=== PATIENT | male | born 1935 | race Caucasian/White ===

== ENCOUNTER 2016-08-05 08:49 | Inpatient (IN) | payer MEDICARE ==
[~2016-08-05] VITALS: Ht 170.2 cm; Wt 66.3 kg
[2016-08-05] VITALS (9 sets, daily range): BP systolic 100–118; BP diastolic 53–60; PULSE 71–82; RESP 16–20; TEMP 97.5–98.7; O2SAT 96–100
[~2016-08-05 08:49] MED LIST: 1-ME1LIQ OR; ASPI81TA82 PO; CO Q100C9 OR; FISH100020 OR; FOLI1TAB PO; HYDR200T42 PO; MEDR4TAB PO; METH2.5 PO; PRIL20CA PO; SAW160TA OR; TAB-TAB PO; VITA20002 OR; VITA25TA5 PO; [UNRECOGNIZED DRUG - OTHER] PO
[2016-08-05] MEDS ORDERED: COLA100C3 PO (09:40)
[2016-08-05] MEDS ORDERED: NITR0.4S SL (09:40)
[2016-08-05] MEDS ORDERED: AMLO10TA2 PO (09:40)
[2016-08-05] MEDS ORDERED: CLOP75TA PO (09:40)
[2016-08-05] MEDS ORDERED: LISI-519 PO (09:40)
[2016-08-05] MEDS ORDERED: ALPR0.5T3 PO (09:40)
[2016-08-05] MEDS ORDERED: ISOS30TA3 PO (09:40)
[2016-08-05] MEDS ORDERED: LACTCAP8 PO (09:40)
[2016-08-05] MEDS: NS 1000P @30 MLS/HR (KVO) IV SCH (09:45)
[2016-08-05] MEDS ORDERED: MIDAZOLAM HCL 2 MG/2 ML VIAL ONE ×2 (10:14→11:23)
[2016-08-05] MEDS ORDERED: HEPARIN-NS/PF INJ 500 ML ONE (10:14)
[2016-08-05] MEDS ORDERED: HEPARIN SODIUM - IV 10,000 UNITS/10 ML VIAL ONE (10:15)
[2016-08-05] MEDS ORDERED: NITROGLYCERIN INJ 5 ML ONE (10:15)
[2016-08-05] MEDS ORDERED: IOHEXOL 350 MG/ML 100 ML BTL (for Cath Lab) OTHER ONE (11:40)
[2016-08-05] MEDS ORDERED: ONDANSETRON HCL 4 MG/2 ML VIAL IV PRN (12:00)
[2016-08-05] MEDS ORDERED: SODIUM CHLOR 0.9% 250 ML INJ 250 ML IV PRN (12:00)
[2016-08-05] MEDS ORDERED: ATROPINE SULFATE 1 MG/ML VIAL IV PRN (12:00)
[2016-08-05] MEDS ORDERED: oxyCODONE/ACETAMINOPHEN 5 MG/325 MG TAB PO PRN ×2 (12:00)
[2016-08-05] MEDS ORDERED: LIDOCAINE HCL 1% 50 ML VIAL INFIL PRN (12:00)
[2016-08-05] MEDS ORDERED: METOCLOPRAMIDE HCL 10 MG/2 ML VIAL IV PRN (12:00)
[2016-08-05] MEDS ORDERED: MISC INFORMATION XX ONE ×2 (12:00)
[2016-08-05] MEDS ORDERED: BACITRACIN OINT 0.9 GM PKT TOP ONE (12:00)
--- NOTE | 2016-08-05 12:34 | MA ---
cc: GAMA GRAF DATE 08/05/2016 INDICATION Unstable angina PROCEDURE PERFORMED 1. Fluoroscopy with interpretation 2. Coronary angiography 3. Right upper extremity angiography METHOD The risks, benefits and alternatives discussed with the patient. The patient understood and consented to the procedure. PROCEDURE The patient brought into the catheterization lab and placed on the catheterization table. The right wrist and right groin prepped and draped in a sterile fashion. The right groin was anesthetized with 2% lidocaine. The right wrist was anesthetized also. The right renal artery was cannulated. A 6-Belizean, 7 cm sheath was placed. RIGHT UPPER EXTREMITY ANGIOGRAPHY The right upper extremity selective radial angiography showed a radial loop. We were able to navigate the loop with a choice PT extra-support wire and a multipurpose catheter, but the 6-Belizean JL catheter had difficulty with tortuosity and caking therefore the right radial approach was aborted. The right common femoral was cannulated and a 6-Belizean 11 center sheath was placed without difficulty. CORONARY ANGIOGRAPHY 1. Left main coronary has minor luminal irregularities. 2. Left anterior descending coronary proximally has about 30% stenosis. 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 The mid left anterior descending coronary artery has rather diffuse disease particularly at the bifurcation of the moderate size second diagonal branch. Both the first and second diagonal branches both have 90% stenosis, but the first diagonal branch is smaller caliber sized. The mid left anterior descending coronary has an 80% stenosis. The remainder left anterior descending coronary artery has only minor luminal irregularities. 3. The left circumflex proximally has minor luminal irregularities It gives rise to a first obtuse marginal branch with minor luminal irregularities. The a second obtuse marginal branch has a smaller second sub-branch that has a 95% stenosis and is likely the potential culprit. The remainder of the second obtuse marginal branch has only minor luminal irregularities. There is also a sinal girish branch off the left circumflex. 4. Right coronary is a dominant vessel giving rise to a posterior descending branch. The stent present in the mid-right coronary is patent. There are some minor luminal irregularities throughout. The distal right coronary is smaller caliber size and just at the bifurcation of the PDA and posterolateral branch there is an 80% stenosis present. The posterior descending branch has only minor luminal irregularities. CONCLUSION Multivessel coronary disease involving the mid left anterior descending coronary artery and several branch vessels. PLAN I reviewed the films in detail with cardiothoracic surgeon, Dr. Marito Valenzuela. Although he does have smaller branch vessels, his diagonal branch would potentially be compromised with any intervention to the mid left anterior descending coronary artery. In addition, the distal right coronary is smaller caliber and may not accommodate a stent. After on lengthy discussion, we decided for consideration of coronary bypass surgery which would involve the second diagonal branch, the distal left anterior descending coronary, the posterior descending branch and possibly the smaller second obtuse marginal SUBbranch. If he is not able to get a graft to that second smaller obtuse marginal subbranch, then we may either medically manage or consider hybrid staged procedure with stenting. For now, we will hold his Plavix and have him seen by cardiothoracic surgery for formal consultation. MD PASTORA Ivey/JAY /11:51 AM /12:17 PM [facility]
[2016-08-05] MEDS ORDERED: ceFAZolin 2 GM PREMIX 50 ML IV SCH (12:45)
[2016-08-05] MEDS ORDERED: PAPAVERINE INJ 60 MG, NITROGLYCERIN INJ 100 MCG, DILTIAZEM INJ 100 MG in SODIUM CHLORID... IRRIGATION SCH (12:45)
[2016-08-05] MEDS ORDERED: SODIUM CHLORIDE 0.9% FLUSH 10 ML FLUSH IVF PRN (12:45)
[2016-08-05] MEDS ORDERED: CEFAZOLIN INJ 500 MG in SODIUM CHLORIDE 0.9% IRR BTL 500 ML IRRIGATION SCH (12:45)
[2016-08-05] MEDS ORDERED: CHLORHEXIDINE GLUCONATE 4% SOLN 120 ML BTL TOPICAL SCH (12:45)
[2016-08-05] MEDS ORDERED: METOPROLOL TARTRATE 25 MG TAB PO SCH (12:45)
[2016-08-05] MEDS ORDERED: INSULIN REGULAR (IV INFUSION) 100 UNITS in SODIUM CHLORIDE 0.9% INJ 100 ML IV SCH (12:45)
[2016-08-05] MEDS ORDERED: ACETAMINOPHEN 325 MG TAB PO PRN (13:00)
[2016-08-05] MEDS ORDERED: PILL SPLITTER OTHER PRN (13:00)
[2016-08-05] MEDS ORDERED: SODIUM CHLORIDE 0.9% FLUSH 10 ML FLUSH IV FLUSH PRN (13:00)
[2016-08-05] MEDS ORDERED: MAGNESIUM HYDROXIDE SUSP 30 ML CUP PO PRN (13:00)
[2016-08-05] MEDS ORDERED: ONDANSETRON HCL 4 MG/2 ML VIAL IVP PRN (13:00)
[2016-08-05] MEDS: DOCUSATE SODIUM 100 MG CAP PO SCH ×2 (13:00→21:00)
[2016-08-05] MEDS ORDERED: NALOXONE HCL 0.4 MG/ML AMP IV PRN (13:00)
[2016-08-05] MEDS ORDERED: NITROGLYCERIN 0.4 MG SL 25 TABS/BTL SL ONE (13:59)
[2016-08-05] MEDS ORDERED: NITROGLYCERIN 0.4 MG SL 25 TABS/BTL SL PRN (14:00)
[2016-08-05] MEDS: ISOSORBIDE MONONITRATE 30 MG TAB PO SCH (14:00)
--- NOTE | 2016-08-05 14:42 | RADRPT ---
EXAM DATE/TIME: 08/05/2016 13:34 [facility] COMPARISON: No previous studies available for comparison. INDICATIONS : Preop cardiac surgery. MEDICAL HISTORY : Hypothyroidism. Hypertension. Lupus. Peripheral arterial disease. GERD. SURGICAL HISTORY : Appendectomy. Cystoscopy, stone retrieval. Cataract, right. Cardiac catheterization. ENCOUNTER: Initial ACUITY: 1 day PAIN SCORE: 2/10 LOCATION: Bilateral leg. TECHNIQUE: Venous ultrasound of the left and right leg was performed from the inguinal ligament to the proximal calf. Real-time, color Doppler and spectral tracing, compression and augmentation techniques were us ed. FINDINGS: RIGHT LEG: There is normal compressibility of the deep venous system from the inguinal region to the proximal ca lf. No echogenic clot is seen in the lumen of the common femoral, femoral, popliteal, and posterior tibial veins. There is a normal response of the venous system to proximal and distal augmentation an d respiration. LEFT LEG: There is normal compressibility of the deep venous system from the inguinal region to the proximal ca lf. No echogenic clot is seen in the lumen of the common femoral, femoral, popliteal, and posterior tibial veins. There is a normal response of the venous system to proximal and distal augmentation an d respiration. CONCLUSION: No evidence of deep venous thrombosis within the lower extremities. Yousuf Hernandez MD on August 05, 2016 at 14:40 Board Certified Radiologist. This report was verified electronically.
--- NOTE | 2016-08-05 14:51 | RADRPT ---
EXAM DATE/TIME: 08/05/2016 13:17 [facility] COMPARISON: No previous studies available for comparison. INDICATIONS : PreOp cardiac surgery. MEDICAL HISTORY : Hypothyroidism. Hypertension. Lupus. Peripheral arterial disease. GERD. SURGICAL HISTORY : Appendectomy. Cystoscopy, stone retrieval. Cataract, right. Cardiac catheterization. ENCOUNTER: Initial ACUITY: 1 day PAIN SCORE: 0/10 LOCATION: Bilateral neck PEAK SYSTOLIC VELOCITIES (cm/sec): ICA/CCA RATIO: Right: 1.7 Left: 1.4 ICA: Right: 156 Left: 163 CCA: Right: 91 Left: 115 ECA: Right: 202 Left: 161 VERTEBRAL: Right: 40 antegrade Left: 54 antegrade Elevated flow velocities and ICA/CCA ratios have been found to correlate with increased degrees of vessel stenosis, calculated as percentage of diameter relative to a normal segment of distal ICA/CCA FINDINGS: RIGHT CAROTID: There is elevation of the peak systolic velocity of the proximal internal carotid artery in the range of 50-69% stenosis although the ICA/CCA ratio is not elevated in this range. CTA of the carotids wou ld be helpful for further evaluation. There is elevation of the peak systolic velocity the right ECA in the range of 50-69% stenosis also. Calcified atherosclerotic plaques are noted within the carotid bulb. LEFT CAROTID: There is elevation of the peak systolic velocity of the proximal internal carotid artery in the range of 50-69% stenosis although the ICA/CCA ratio is not elevated in this range. CTA of the carotids wou ld be helpful for further evaluation. There is elevation of the peak systolic velocity the left ECA i n the range of 50-69% stenosis also. Calcified atherosclerotic plaques are noted within the carotid b ulb. VERTEBRAL ARTERIES: Antegrade flow is seen in both vertebral arteries. MISCELLANEOUS: None. CONCLUSION: Elevation of the peak systolic velocities of the proximal internal carotid arteries a nd external carotid arteries bilaterally in the range of 50-69% stenosis without significant elevatio n of the ICA/CCA ratio in this range. CTA of the carotids would be helpful for further evaluation. Ca lcified atherosclerotic are noted within the carotid bulbs bilaterally. Yousuf Hernandez MD on August 05, 2016 at 14:45 Board Certified Radiologist. This report was verified electronically.
--- NOTE | 2016-08-05 14:52 | RADRPT ---
EXAM DATE/TIME: 08/05/2016 13:39 [facility] COMPARISON: No previous studies available for comparison. INDICATIONS : Preop cardiac surgery. MEDICAL HISTORY : Hypothyroidism. Hypertension. Lupus. Peripheral arterial disease. SURGICAL HISTORY : Appendectomy. Cystoscopy, stone retrieval. Cataract, right. Cardiac catheterization. ENCOUNTER: Initial ACUITY: 1 day PAIN SCORE: 2/10 LOCATION: Bilateral leg. GREATER SAPHENOUS VEIN THIGH: PROXIMAL: Right 4 mm Left 4 mm MID: Right 4 mm Left 4 mm DISTAL: Right 3 mm Left 3 mm CALF: PROXIMAL: Right 2 mm Left 1 mm MID: Right 2 mm Left 2 mm DISTAL: Right 2 mm Left 2 mm FINDINGS: The venous system of the lower extremities are patent by color Doppler imaging. Measurements of the leg veins (in mm) are listed above. CONCLUSION: Bilateral saphenous vein mapping as described above. Yousuf Hernandez MD on August 05, 2016 at 14:50 Board Certified Radiologist. This report was verified electronically.
[2016-08-05 17:03] LABS: BLOOD, URINE NEG (NEG); COMMENT (UR) CULT NOT INDICATED; CULTURE IF INDICATED CULT NOT INDICATED; GLUCOSE,URINE NEG (NEG); HYALINE CAST, URINE 5 /lpf (RARE); KETONE, URINE NEG (NEG); MUCUS URINE FEW /lpf (OCC); NITRITE,URINE NEG (NEG); PH, URINE 5.5 (5.0-8.5); URINE COLOR YELLOW (YELLW/STRAW)
--- NOTE | 2016-08-05 18:51 | PD.CAR.PN ---
CVT Progress Note Subjective/Hospital Course: sts discussed with pt RISK SCORES About the STS Risk Calculator Procedure: CAB Only Risk of Mortality: 1.743% Morbidity or Mortality: 11.967% Long Length of Stay: 4.81% Short Length of Stay: 44.701% Permanent Stroke: 1.068% Prolonged Ventilation: 7.93% DSW Infection: 0.278% Renal Failure: 2.185% Reoperation: 5.537% Objective: Vital Signs Date Time Temp Pulse Resp B/P Pulse Ox O2 Delivery O2 Flow Rate FiO2 08/05/16 18:00 76 08/05/16 17:00 72 08/05/16 16:00 73 08/05/16 16:00 98.3 71 16 114/60 98 08/05/16 15:00 72 08/05/16 09:35 97.5 82 18 118/60 100 Labs: Laboratory Tests Test 08/05/16 08/05/16 08/05/16 09:12 14:45 16:40 Blood Type A POSITIVE Antibody Screen NEGATIVE Blood Bank Comment Nasal Screen MRSA (PCR) NEGATIVE (NEGATIVE) Urine Color YELLOW (YELLW/STRAW) Urine Turbidity CLEAR (CLEAR) Urine pH 5.5 (5.0-8.5) Urine Specific [place] GREATER THAN 1.050 (1.002-1.035) Urine Protein TRACE mg/dL (NEG-TRACE) Urine Glucose (UA) NEG mg/dL (NEG) Urine Ketones NEG mg/dL (NEG) Urine Occult Blood NEG (NEG) Urine Nitrite NEG (NEG) Urine Bilirubin NEG (NEG) Urine Urobilinogen LESS THAN 2.0 MG/DL (LESS THAN 2.0) Urine Leukocyte Esterase NEG (NEG) Urine Hyaline Casts 5 /lpf (RARE) Urine Mucus FEW /lpf (OCC) Microscopic Urinalysis Comment CULT NOT INDICATED Nathalie Cruz Aug 05, 2016 18:51
[2016-08-05] MEDS: HYDROXYCHLOROQUINE SULFATE 200 MG TAB PO SCH (21:00)
[2016-08-05] MEDS ORDERED: SODIUM CHLORIDE 0.9% FLUSH 10 ML FLUSH IVF SCH (21:00)
[2016-08-05] MEDS: METOPROLOL TARTRATE 25 MG TAB PO SCH (21:00)
[2016-08-05] MEDS: SODIUM CHLORIDE 0.9% FLUSH 10 ML FLUSH IV FLUSH SCH (21:00)
[2016-08-06] VITALS (25 sets, daily range): BP systolic 107–138; BP diastolic 52–72; PULSE 63–99; RESP 18–20; TEMP 98–98.9; O2SAT 96–97
[2016-08-06] MEDS: ISOSORBIDE MONONITRATE 30 MG TAB PO SCH (05:28)
[2016-08-06] MEDS ORDERED: ISOSORBIDE MONONITRATE 30 MG TAB PO SCH (07:00)
[2016-08-06] MEDS ORDERED: SYSTSOL15 EACH EYE (08:40)
--- NOTE | 2016-08-06 08:58 | MB ---
cc: COLT GALAVIZ MD DATE OF CONSULTATION: 08/05/2016 DATE OF : 1935 80 year-old HISTORY: This is a very pleasant 80-year-old male complaining of some left-sided chest pain that radiated to his back and shoulder. He took some nitro at home which relieved the pain but it returned, he felt very light headed, and dizzy, they called. DICTATION DISCONTINUED DAVID Cruz DICTATED BY: DAVID Cruz /6:38 PM /8:53 AM
[2016-08-06] MEDS: METOPROLOL TARTRATE 25 MG TAB PO SCH ×2 (09:00→20:51)
[2016-08-06] MEDS: SODIUM CHLORIDE 0.9% FLUSH 10 ML FLUSH IV FLUSH SCH ×2 (09:00→20:51)
--- NOTE | 2016-08-06 09:19 | PD.CARD.PN ---
Subjective Subjective Remarks C/o abdominal soreness, worse LLQ, watery stool. Objective Medications Current Medications Medications (Trade) Dose Ordered Sig/Ashok Route Start Time Stop Time Status Last Admin (NS 1000 ml Inj) 1,000 ml @ 30 mls/hr Q24H IV 08/05/16 09:45 08/05/16 09:45 (Percocet 5-325 Mg) 1 tab Q4H PRN PO 08/05/16 12:00 (Percocet 5-325 Mg) 2 tab Q4H PRN PO 08/05/16 12:00 Atropine Sulfate 0.5 mg 0.5 mg UNSCH PRN IV 08/05/16 12:00 (NS 250 ml Inj) 250 ml @ 500 mls/hr ONCE PRN IV 08/05/16 12:00 08/06/16 11:59 (Reglan Inj) 10 mg Q4H PRN IV 08/05/16 12:00 (Xylocaine 1% Inj (50 ml)) 10 ml UNSCH PRN INFIL 08/05/16 12:00 08/06/16 11:59 (Norvasc) 10 mg DAILY PO 08/06/16 09:00 (Aspirin Chew) 81 mg DAILY PO 08/06/16 09:00 (Folate) 1 mg DAILY PO 08/06/16 09:00 (Plaquenil) 200 mg BID PO 08/05/16 21:00 (NS Flush) 2 ml UNSCH PRN IV FLUSH 08/05/16 13:00 (NS Flush) 2 ml BID IV FLUSH 08/05/16 21:00 08/05/16 21:00 (Tylenol) 650 mg Q4H PRN PO 08/05/16 13:00 (Zofran Inj) 4 mg Q6H PRN IVP 08/05/16 13:00 (Colace) 100 mg Q12HR PO 08/05/16 13:00 (Milk Of Magnesia Liq) 30 ml Q12H PRN PO 08/05/16 13:00 (Narcan Inj) 0.4 mg UNSCH PRN IV 08/05/16 13:00 (Pill Splitter) 1 ea UNSCH PRN OTHER 08/05/16 13:00 (Lopressor) 12.5 mg Q12HR PO 08/05/16 21:00 (Xanax) 0.25 mg HS PRN PO 08/05/16 14:00 (Imdur) 30 mg DAILY@07 PO 08/05/16 14:00 08/06/16 05:28 (Nitrostat Sl) 0.4 mg Q5M PRN SL 08/05/16 14:00 Vital Signs / I&O Vital Signs Date Time Temp Pulse Resp B/P Pulse Ox O2 Delivery O2 Flow Rate FiO2 08/06/16 08:00 98.9 70 18 119/59 96 08/06/16 07:00 63 08/06/16 06:00 67 08/06/16 05:00 65 08/06/16 04:00 Room Air 08/06/16 04:00 73 08/06/16 04:00 98.1 73 18 126/72 97 08/06/16 03:00 74 08/06/16 02:00 76 08/06/16 01:00 74 08/06/16 00:00 Room Air 08/06/16 00:00 80 08/06/16 00:00 98.2 80 18 117/62 96 08/05/16 23:00 75 08/05/16 22:37 96 21 08/05/16 21:00 76 08/05/16 20:00 Room Air 08/05/16 20:00 74 08/05/16 20:00 98.7 74 20 100/53 97 08/05/16 18:00 76 08/05/16 17:00 72 08/05/16 16:00 73 08/05/16 16:00 98.3 71 16 114/60 98 08/05/16 15:00 72 08/05/16 09:35 97.5 82 18 118/60 100 I/O 08/05/16 08/05/16 08/05/16 08/06/16 08/06/16 08/06/16 07:00 15:00 23:00 07:00 15:00 23:00 Intake Total 490 ml Output Total 800 ml Balance -310 ml Intake Oral 480 ml IV Total 10 ml Output Urine Total 800 ml # Bowel Movements 1 Physical Exam GENERAL: Well developed, well nourished. No acute distress. HEENT: Jugular venous pressure is normal. CHEST: Lungs clear to auscultation bilaterally. Unlabored respiratory effort. CARDIAC: Regular rate and rhythm without S3, S4, or murmur. ABDOMEN: Soft, BS+, slight tenderness LLQ (notes watery stool). Dr. Giordano happens to be here on floor who will check as well. Will consider formal consult , CT if gets worse. EXTREMITIES: No clubbing, cyanosis, or edema. Right wrist and right groin OK Laboratory Laboratory Tests Test 08/05/16 08/05/16 14:45 16:40 Nasal Screen MRSA (PCR) NEGATIVE Urine Color YELLOW Urine Turbidity CLEAR Urine pH 5.5 Urine Specific [place] GREATER THAN 1.050 Urine Protein TRACE mg/dL Urine Glucose (UA) NEG mg/dL Urine Ketones NEG mg/dL Urine Occult Blood NEG Urine Nitrite NEG Urine Bilirubin NEG Urine Urobilinogen LESS THAN 2.0 MG/DL Urine Leukocyte Esterase NEG Urine Hyaline Casts 5 /lpf Urine Mucus FEW /lpf Microscopic Urinalysis Comment CULT NOT INDICATED Assessment and Plan Problem List: (1) CAD (coronary artery disease) Assessment and Plan: Severe. Awaiting CABG (2) Abdominal pain Assessment and Plan: Nonspecific. ? gas. Consider formal consult and CT if it gets worse Mark Nixon MD Aug 06, 2016 09:19
[2016-08-06] MEDS: HYDROXYCHLOROQUINE SULFATE 200 MG TAB PO SCH ×2 (09:23→20:51)
[2016-08-06] MEDS: ASPIRIN 81 MG CHEW TAB PO SCH (09:24)
[2016-08-06] MEDS: DOCUSATE SODIUM 100 MG CAP PO SCH ×2 (09:24→20:52)
[2016-08-06] MEDS: FOLIC ACID 1 MG TAB PO SCH (09:24)
[2016-08-06] MEDS ORDERED: SIMETHICONE 80 MG CHEWABLE TAB CHEW ONE (09:30)
[2016-08-06] MEDS: NS 1000P @30 MLS/HR (KVO) IV SCH (09:45)
--- NOTE | 2016-08-06 10:35 | RADRPT ---
EXAM DATE/TIME: 08/06/2016 10:22 [facility] COMPARISON: No previous studies available for comparison. INDICATIONS : Evaluate for pneumonia, pneumothorax, or communicable disease. Pre-op heart surgery. MEDICAL HISTORY : None. SURGICAL HISTORY : None. ENCOUNTER: Initial ACUITY: 1 day PAIN SCORE: 0/10 LOCATION: Bilateral chest FINDINGS: PA and lateral views of the chest demonstrate the lungs to be symmetrically aerated without evidence of mass, infiltrate or effusion. The cardiomediastinal contours are unremarkable. Osseous structure s are intact. CONCLUSION: Normal examination. Nathalie Valencia MD on August 06, 2016 at 10:33 Board Certified Radiologist. This report was verified electronically.
[2016-08-06 13:58] LABS: AUTOMATED NEUTROPHIL # 5.7 TH/MM3 (1.8-7.7); BASOPHIL % 0.4 % (0.0-2.0); EOSINOPHIL % 0.3 % (0.0-4.0); HEMATOCRIT 33.6 % (39.0-51.0); HEMO FLAGS DIFF FINAL; LYMPHOCYTE # 0.7 TH/MM3 (1.0-4.8); MEAN CELL VOLUME 91.7 FL (80.0-100.0); MEAN CORPUSCULAR HEMOGLOBIN 31.8 PG (27.0-34.0); MEAN CORPUSCULAR HGB CONC 34.6 % (32.0-36.0); MONO % 12.2 % (0.0-8.0); NEUT % 78.1 % (16.0-70.0); PLATELET COUNT 203 TH/MM3 (150-450); RED BLOOD COUNT 3.66 MIL/MM3 (4.50-5.90); RED CELL DISTRIBUTION WIDTH 13.4 % (11.6-17.2); WHITE BLOOD COUNT 7.3 TH/MM3 (4.0-11.0)
[2016-08-06 14:21] LABS: ALKALINE PHOSPHATASE 36 U/L (45-117); ALT (GPT) 19 U/L (12-78); AMYLASE 41 U/L (25-115); ANION GAP 8 MEQ/L (5-15); AST (GOT) 18 U/L (15-37); BICARBONATE 26.4 MEQ/L (21.0-32.0); BLOOD UREA NITROGEN 20 MG/DL (7-18); CHLORIDE 102 MEQ/L (98-107); GLOMERULAR FILTRATION RATE 69 ML/MIN (>89); POTASSIUM 3.8 MEQ/L (3.5-5.1); SODIUM (NA) 136 MEQ/L (136-145); TOTAL BILIRUBIN ADULT 0.4 MG/DL (0.2-1.0)
[2016-08-07] VITALS (23 sets, daily range): BP systolic 92–129; BP diastolic 54–73; PULSE 59–86; RESP 18–20; TEMP 98.1–99.4; O2SAT 96–97
[2016-08-07] MEDS: ISOSORBIDE MONONITRATE 30 MG TAB PO SCH (06:07)
[2016-08-07] MEDS: SODIUM CHLORIDE 0.9% FLUSH 10 ML FLUSH IV FLUSH SCH ×2 (09:00→19:51)
[2016-08-07] MEDS: HYDROXYCHLOROQUINE SULFATE 200 MG TAB PO SCH ×2 (09:00→19:51)
[2016-08-07] MEDS: ASPIRIN 81 MG CHEW TAB PO SCH (09:00)
[2016-08-07] MEDS: FOLIC ACID 1 MG TAB PO SCH (09:00)
[2016-08-07] MEDS: METOPROLOL TARTRATE 25 MG TAB PO SCH ×2 (09:00→19:51)
[2016-08-07] MEDS: DOCUSATE SODIUM 100 MG CAP PO SCH ×2 (09:00→19:51)
[2016-08-07] MEDS: ARTIFICIAL TEARS OPTH SOLN 15 ML BTL EACH EYE PRN ×2 (09:03→20:03)
[2016-08-07] MEDS: NS 1000P @30 MLS/HR (KVO) IV SCH (09:45)
--- NOTE | 2016-08-07 10:21 | PD.CARD.PN ---
Subjective Subjective Remarks some vague brief left sided chest discomfort. no typical angina. he passed some gas and abdominal pain resolved Objective Medications Current Medications Medications (Trade) Dose Ordered Sig/Ashok Route Start Time Stop Time Status Last Admin (NS 1000 ml Inj) 1,000 ml @ 30 mls/hr Q24H IV 08/05/16 09:45 08/05/16 09:45 (Percocet 5-325 Mg) 1 tab Q4H PRN PO 08/05/16 12:00 (Percocet 5-325 Mg) 2 tab Q4H PRN PO 08/05/16 12:00 (Atropine Inj) 0.5 mg UNSCH PRN IV 08/05/16 12:00 (Reglan Inj) 10 mg Q4H PRN IV 08/05/16 12:00 (Norvasc) 10 mg DAILY PO 08/06/16 09:00 08/07/16 09:00 (Aspirin Chew) 81 mg DAILY PO 08/06/16 09:00 08/07/16 09:00 (Folate) 1 mg DAILY PO 08/06/16 09:00 08/07/16 09:00 (Plaquenil) 200 mg BID PO 08/05/16 21:00 08/07/16 09:00 (NS Flush) 2 ml UNSCH PRN IV FLUSH 08/05/16 13:00 (NS Flush) 2 ml BID IV FLUSH 08/05/16 21:00 08/07/16 09:00 (Tylenol) 650 mg Q4H PRN PO 08/05/16 13:00 (Zofran Inj) 4 mg Q6H PRN IVP 08/05/16 13:00 (Colace) 100 mg Q12HR PO 08/05/16 13:00 08/06/16 09:24 (Milk Of Magnesia Liq) 30 ml Q12H PRN PO 08/05/16 13:00 (Narcan Inj) 0.4 mg UNSCH PRN IV 08/05/16 13:00 (Pill Splitter) 1 ea UNSCH PRN OTHER 08/05/16 13:00 (Lopressor) 12.5 mg Q12HR PO 08/05/16 21:00 08/07/16 09:00 (Xanax) 0.25 mg HS PRN PO 3/24/17 14:00 (Imdur) 30 mg DAILY@07 PO 08/05/16 14:00 08/07/16 06:07 (Nitrostat Sl) 0.4 mg Q5M PRN SL 08/05/16 14:00 (Tears Naturale Opth Soln) 1 drop QID PRN EACH EYE 08/06/16 09:30 08/07/16 09:03 Vital Signs / I&O Vital Signs Date Time Temp Pulse Resp B/P Pulse Ox O2 Delivery O2 Flow Rate FiO2 08/07/16 09:00 68 08/07/16 08:00 75 08/07/16 08:00 96 Room Air 08/07/16 08:00 99.4 75 18 115/54 96 08/07/16 07:00 59 08/07/16 06:00 68 08/07/16 05:00 67 08/07/16 04:00 63 08/07/16 04:00 98.1 63 18 124/73 97 08/07/16 04:00 Room Air 08/07/16 03:00 65 08/07/16 02:00 66 08/07/16 01:00 69 08/07/16 00:00 63 08/06/16 23:55 Room Air 08/06/16 23:55 98.4 63 20 115/68 96 08/06/16 23:00 69 08/06/16 22:00 70 08/06/16 21:00 81 08/06/16 20:00 Room Air 08/06/16 20:00 98.2 76 18 138/66 97 08/06/16 20:00 76 08/06/16 18:00 99 08/06/16 17:00 75 08/06/16 16:00 83 08/06/16 15:00 98.0 72 20 124/64 96 08/06/16 15:00 85 08/06/16 14:00 70 08/06/16 13:00 68 08/06/16 12:00 72 08/06/16 11:00 71 08/06/16 11:00 98.3 72 20 107/52 96 I/O 08/06/16 08/06/16 08/06/16 08/07/16 08/07/16 08/07/16 07:00 15:00 23:00 07:00 15:00 23:00 Intake Total 490 ml 720 ml 422 ml Output Total 800 ml 800 ml Balance -310 ml 720 ml -378 ml Intake Oral 480 ml 720 ml 420 ml IV Total 10 ml 2 ml Output Urine Total 800 ml 800 ml # Voids 3 # Bowel Movements 1 0 0 Physical Exam GENERAL: Well developed, well nourished. No acute distress. HEENT: Jugular venous pressure is normal. CHEST: Lungs clear to auscultation bilaterally. Unlabored respiratory effort. CARDIAC: Regular rate and rhythm without S3, S4, or murmur. ABDOMEN: Soft, BS+, no tenderness. EXTREMITIES: No clubbing, cyanosis, or edema. Right wrist and right groin OK Laboratory Laboratory Tests Test 08/06/16 13:47 White Blood Count 7.3 TH/MM3 Red Blood Count 3.66 MIL/MM3 Hemoglobin 11.6 GM/DL Hematocrit 33.6 % Mean Corpuscular Volume 91.7 FL Mean Corpuscular Hemoglobin 31.8 PG Mean Corpuscular Hemoglobin 34.6 % Concent Red Cell Distribution Width 13.4 % Platelet Count 203 TH/MM3 Mean Platelet Volume 7.4 FL Neutrophils (%) (Auto) 78.1 % Lymphocytes (%) (Auto) 9.0 % Monocytes (%) (Auto) 12.2 % Eosinophils (%) (Auto) 0.3 % Basophils (%) (Auto) 0.4 % Neutrophils # (Auto) 5.7 TH/MM3 Lymphocytes # (Auto) 0.7 TH/MM3 Monocytes # (Auto) 0.9 TH/MM3 Eosinophils # (Auto) 0.0 TH/MM3 Basophils # (Auto) 0.0 TH/MM3 CBC Comment DIFF FINAL Differential Comment Sodium Level 136 MEQ/L Potassium Level 3.8 MEQ/L Chloride Level 102 MEQ/L Carbon Dioxide Level 26.4 MEQ/L Anion Gap 8 MEQ/L Blood Urea Nitrogen 20 MG/DL Creatinine 1.04 MG/DL Estimat Glomerular Filtration 69 ML/MIN Rate Random Glucose 89 MG/DL Calcium Level 8.1 MG/DL Total Bilirubin 0.4 MG/DL Aspartate Amino Transf 18 U/L (AST/SGOT) Alanine Aminotransferase 19 U/L (ALT/SGPT) Alkaline Phosphatase 36 U/L Total Protein 5.9 GM/DL Albumin 3.1 GM/DL Amylase Level 41 U/L Assessment and Plan Problem List: (1) CAD (coronary artery disease) Assessment and Plan: sahratly stable. awaiting CABG once clopidogrel wears off (2) Abdominal pain Assessment and Plan: resolved Assessment and Plan Dr. Chang back tomorrow Mark Nixon MD Aug 07, 2016 10:21
--- NOTE | 2016-08-07 12:02 | PD.CAR.PN ---
CVT Progress Note Subjective/Hospital Course: sts discussed with pt RISK SCORES About the STS Risk Calculator Procedure: CAB Only Risk of Mortality: 1.743% Morbidity or Mortality: 11.967% Long Length of Stay: 4.81% Short Length of Stay: 44.701% Permanent Stroke: 1.068% Prolonged Ventilation: 7.93% DSW Infection: 0.278% Renal Failure: 2.185% Reoperation: 5.537% 08/07/16 No complaints. Denies chest pain Objective: Vital Signs Date Time Temp Pulse Resp B/P Pulse Ox O2 Delivery O2 Flow Rate FiO2 08/07/16 11:00 65 08/07/16 10:00 61 08/07/16 09:00 68 08/07/16 08:00 75 08/07/16 08:00 96 Room Air 08/07/16 08:00 99.4 75 18 115/54 96 08/07/16 07:00 59 08/07/16 06:00 68 08/07/16 05:00 67 08/07/16 04:00 63 08/07/16 04:00 98.1 63 18 124/73 97 08/07/16 04:00 Room Air 08/07/16 03:00 65 08/07/16 02:00 66 08/07/16 01:00 69 08/07/16 00:00 63 08/06/16 23:55 Room Air 08/06/16 23:55 98.4 63 20 115/68 96 08/06/16 23:00 69 08/06/16 22:00 70 08/06/16 21:00 81 08/06/16 20:00 Room Air 08/06/16 20:00 98.2 76 18 138/66 97 08/06/16 20:00 76 08/06/16 18:00 99 08/06/16 17:00 75 08/06/16 16:00 83 08/06/16 15:00 98.0 72 20 124/64 96 08/06/16 15:00 85 08/06/16 14:00 70 08/06/16 13:00 68 Result Diagram: 08/06/16 1347 08/06/16 1347 Imaging: Last Impressions Chest X-Ray 08/06/16 0000 Signed Impressions: Service Date/Time: Saturday, August 06, 2016 10:22 - CONCLUSION: Normal examination. Nathalie Valencia MD Lower Extremity Ultrasound 08/05/16 0000 Signed Impressions: Service Date/Time: Friday, August 05, 2016 13:39 - CONCLUSION: Bilateral saphenous vein mapping as described above. Yousuf Hernandez MD Carotid Artery Ultrasound 08/05/16 0000 Signed Impressions: Service Date/Time: Friday, August 05, 2016 13:17 - CONCLUSION: Elevation of the peak systolic velocities of the proximal internal carotid arteries and external carotid arteries bilaterally in the range of 50-69%% stenosis without significant elevation of the ICA/CCA ratio in this range. CTA of the carotids would be helpful for further evaluation. Calcified atherosclerotic are noted within the carotid bulbs bilaterally. Yousuf Hernandez MD Cardiovascular: RRR Telemetry: NSR Pulmonary: CTA GI/: NABS, NT Plan: PREOP for CABG on Monday. (1) CAD (coronary artery disease) Plan: cuurently stable. awaiting CABG once clopidogrel wears off (2) Abdominal pain Plan: resolved Naomi Jordan MD Aug 07, 2016 12:02
[2016-08-08] VITALS (24 sets, daily range): BP systolic 94–128; BP diastolic 52–69; PULSE 53–76; RESP 18; TEMP 98.1–98.4; O2SAT 96–97
[2016-08-08 03:30] LABS: AUTOMATED NEUTROPHIL # 4.5 TH/MM3 (1.8-7.7); BASOPHIL % 0.4 % (0.0-2.0); EOSINOPHIL % 0.8 % (0.0-4.0); HEMO FLAGS DIFF FINAL; LYMPH % 15.1 % (9.0-44.0); LYMPHOCYTE # 0.9 TH/MM3 (1.0-4.8); MEAN CELL VOLUME 92.3 FL (80.0-100.0); MEAN CORPUSCULAR HEMOGLOBIN 32.2 PG (27.0-34.0); MEAN CORPUSCULAR HGB CONC 34.9 % (32.0-36.0); MONO % 10.9 % (0.0-8.0); NEUT % 72.8 % (16.0-70.0); PLATELET COUNT 223 TH/MM3 (150-450); RED BLOOD COUNT 4.01 MIL/MM3 (4.50-5.90); RED CELL DISTRIBUTION WIDTH 13.9 % (11.6-17.2); WHITE BLOOD COUNT 6.2 TH/MM3 (4.0-11.0)
[2016-08-08 03:45] LABS: INTERNATIONAL NORMALIZED RATIO 1.1 RATIO; PROTHROMBIN TIME - PATIENT 12.1 SEC (9.8-11.6)
[2016-08-08 03:51] LABS: P2Y12 REACTION UNITS (PRU) 200 PRU (194-418)
[2016-08-08 03:53] LABS: ALKALINE PHOSPHATASE 41 U/L (45-117); ALT (GPT) 28 U/L (12-78); ANION GAP 6 MEQ/L (5-15); AST (GOT) 26 U/L (15-37); BICARBONATE 26.5 MEQ/L (21.0-32.0); BLOOD UREA NITROGEN 18 MG/DL (7-18); CHLORIDE 103 MEQ/L (98-107); GLOMERULAR FILTRATION RATE 73 ML/MIN (>89); POTASSIUM 3.9 MEQ/L (3.5-5.1); SODIUM (NA) 135 MEQ/L (136-145); TOTAL BILIRUBIN ADULT 0.5 MG/DL (0.2-1.0)
[2016-08-08] MEDS: ISOSORBIDE MONONITRATE 30 MG TAB PO SCH (06:25)
--- NOTE | 2016-08-08 07:35 | PD.CARD.PN ---
Subjective Subjective Remarks feels well (Morris Stratton) Objective Vital Signs / I&O Vital Signs Date Time Temp Pulse Resp B/P Pulse Ox O2 Delivery O2 Flow Rate FiO2 08/08/16 07:00 53 08/08/16 06:00 63 08/08/16 05:00 59 08/08/16 04:00 98.4 56 18 122/69 97 08/08/16 04:00 56 08/08/16 04:00 Room Air 08/08/16 03:00 57 08/08/16 02:00 55 08/08/16 01:00 59 08/08/16 00:00 Room Air 08/08/16 00:00 58 08/08/16 00:00 98.2 58 18 102/58 96 08/07/16 23:00 63 08/07/16 22:00 82 08/07/16 21:00 80 08/07/16 20:00 98.2 86 20 129/71 97 08/07/16 20:00 Room Air 08/07/16 20:00 86 08/07/16 18:00 71 08/07/16 17:00 66 08/07/16 16:00 63 08/07/16 15:00 78 08/07/16 15:00 98.8 63 18 114/60 97 08/07/16 14:00 96 08/07/16 14:00 79 08/07/16 13:00 70 08/07/16 12:00 62 08/07/16 11:00 98.5 62 18 92/54 96 08/07/16 11:00 65 08/07/16 10:00 61 08/07/16 09:00 68 08/07/16 08:00 75 08/07/16 08:00 96 Room Air 08/07/16 08:00 99.4 75 18 115/54 96 I/O 08/07/16 08/07/16 08/07/16 08/08/16 08/08/16 08/08/16 07:00 15:00 23:00 07:00 15:00 23:00 Intake Total 422 ml 720 ml 402 ml Output Total 800 ml 1400 ml 950 ml Balance -378 ml -680 ml -548 ml Intake Oral 420 ml 720 ml 400 ml IV Total 2 ml 2 ml Output Urine Total 800 ml 1400 ml 950 ml # Bowel Movements 0 0 0 Physical Exam GENERAL: Well-nourished, well-developed patient in no apparent distress. NECK: No JVD. No carotid bruit. CARDIOVASCULAR: Regular rate and rhythm. S1/S2 no murmur, rub, or gallop. RESPIRATORY: No accessory muscle use. Clear to auscultation. Breath sounds equal bilaterally. GASTROINTESTINAL: Abdomen soft, non-tender, nondistended. MUSCULOSKELETAL: Extremities without clubbing, cyanosis, or edema. Laboratory Laboratory Tests Test 08/08/16 03:19 White Blood Count 6.2 TH/MM3 Red Blood Count 4.01 MIL/MM3 Hemoglobin 12.9 GM/DL Hematocrit 37.0 % Mean Corpuscular Volume 92.3 FL Mean Corpuscular Hemoglobin 32.2 PG Mean Corpuscular Hemoglobin 34.9 % Concent Red Cell Distribution Width 13.9 % Platelet Count 223 TH/MM3 Mean Platelet Volume 7.8 FL Neutrophils (%) (Auto) 72.8 % Lymphocytes (%) (Auto) 15.1 % Monocytes (%) (Auto) 10.9 % Eosinophils (%) (Auto) 0.8 % Basophils (%) (Auto) 0.4 % Neutrophils # (Auto) 4.5 TH/MM3 Lymphocytes # (Auto) 0.9 TH/MM3 Monocytes # (Auto) 0.7 TH/MM3 Eosinophils # (Auto) 0.0 TH/MM3 Basophils # (Auto) 0.0 TH/MM3 CBC Comment DIFF FINAL Differential Comment Prothrombin Time 12.1 SEC Prothromb Time International 1.1 RATIO Ratio Platelet Function P2Y12 React 200 PRU Units Sodium Level 135 MEQ/L Potassium Level 3.9 MEQ/L Chloride Level 103 MEQ/L Carbon Dioxide Level 26.5 MEQ/L Anion Gap 6 MEQ/L Blood Urea Nitrogen 18 MG/DL Creatinine 0.99 MG/DL Estimat Glomerular Filtration 73 ML/MIN Rate Random Glucose 84 MG/DL Calcium Level 8.4 MG/DL Total Bilirubin 0.5 MG/DL Aspartate Amino Transf 26 U/L (AST/SGOT) Alanine Aminotransferase 28 U/L (ALT/SGPT) Alkaline Phosphatase 41 U/L Total Protein 6.8 GM/DL Albumin 3.7 GM/DL Blood Type A POSITIVE Antibody Screen NEGATIVE Crossmatch Leukocyte-Reduced Red Blood Cells Blood Bank Comment (Morris Stratton) Assessment and Plan Problem List: (1) CAD (coronary artery disease) (2) Abdominal pain Assessment and Plan Plan is for CABG Monday. Continue present medical regimen (Morris Stratton) Assessment and Plan Doing well. Mild bradycardia. cont bb. no CP. recheck p2y12 in am. > 200 would be safe for surgery. currently at 200, so I anticipate he will be fine for tomorrow. (Blade Chang MD) Morris Stratton Aug 08, 2016 07:35 Blade Chang MD Aug 08, 2016 08:28
--- NOTE | 2016-08-08 07:58 | MH ---
cc: COLT GALAVIZ MD DATE OF ADMISSION: 08/05/2016 DATE OF : 1935 HISTORY OF PRESENT ILLNESS This is a 80-year-old male, followup for a recent hospitalization where he had some episodes of left-sided chest pain radiating to his back and shoulder, took some nitro, had some dizziness afterwards and they called 9-1-1. It was suggested that he have a left heart catheterization and the patient's family requested that Dr. Cahng proceed with the heart cath. The patient underwent heart cath today which showed proximal LAD 30%, mid distal LAD 80%, diagonal 80%, the circ was 30%, OM 95%, the RCA 80%. We were consulted to evaluate for coronary artery bypass grafting. PAST MEDICAL HISTORY Significant for - 1. Coronary artery disease. 2. Anxiety. 3. Arthritis. 4. Chronic kidney disease stage II. 5. Gastroesophageal reflux disease. 6. History of prior VT. PAST SURGICAL HISTORY 1. Cardiac cath. 2. Appendectomy. 3. Bilateral cataract surgery. 4. He had a partial colectomy. 5. Colonoscopy. FAMILY HISTORY Noncontributory. SOCIAL HISTORY The patient , nonsmoker, occasional alcohol. Works out at the gym five times a week. ALLERGIES PLEASE NOTE THAT HE IS INTOLERANT TO STATINS AND ALLERGIC TO SULFA. REVIEW OF SYSTEMS GENERAL: No night sweats, fever, heat and cold intolerance. SKIN: No psoriasis, itching or hives. HEENT: No blurred vision or hearing loss. RESPIRATORY: No cough or shortness of breath. CARDIOVASCULAR: As above in the HPI. GASTROINTESTINAL: No diarrhea or vomiting. GENITOURINARY: No burning or frequency. TIERCE FILLER: No history of TIA, CVA or seizure disorder. ENDOCRINOLOGY: No history of diabetes and/or hypothyroidism. PHYSICAL EXAMINATION VITAL SIGNS: Blood pressure 114/60, heart rate is 70, temperature 98.3. GENERAL: The patient is awake, alert, in no acute distress. HEENT: Head is normocephalic, atraumatic. Pupils equal, reactive. Oral mucosa pink, moist. NECK: Supple. No JVD. Heart sounds S1, S2. Regular rate and rhythm. No rubs, murmurs or gallops. LUNGS: Clear to auscultation. No wheezes, rales or rhonchi. ABDOMEN: Soft, nontender. No masses or organomegaly. EXTREMITIES: No cyanosis, clubbing or edema. LABORATORY FINDINGS Hemoglobin 14, hematocrit of 40, white cell count of 6.6, platelet count of 236. INR 1.2. Sodium 130, potassium 4.4, BUN of 14, creatinine 0.93, total cholesterol 167, HDL 37, LDL 113, triglycerides 86. He had an echocardiogram which showed an EF of 55, some mild inferior hypokinesis, trace mitral regurgitation, mild tricuspid regurgitation. Aortic valve was thickened consistent with some aortic sclerosis, valve area 2.5. IMPRESSION This is a very pleasant 80-year-old male, recent chest pain, status post heart catheterization with multivessel disease. PLAN The plan will be for coronary artery bypass grafting to the LAD, the diagonal, the PDA and possible terminal circ. The patient's EF is 55%. Procedures, alternatives and risks have been discussed with the patient. He will be kept in the hospital due to a history of some chest pain. We will continue home medications with nitrates and aspirin. He is intolerant to statins. STS data will be discussed with the patient and dictated in the electronic record. Dictated by: DAVID Cruz Colt DUKES /6:40 PM /7:58 AM
[2016-08-08] MEDS: ASPIRIN 81 MG CHEW TAB PO SCH (08:35)
[2016-08-08] MEDS: DOCUSATE SODIUM 100 MG CAP PO SCH ×2 (08:35→20:37)
[2016-08-08] MEDS: FOLIC ACID 1 MG TAB PO SCH (08:35)
[2016-08-08] MEDS: HYDROXYCHLOROQUINE SULFATE 200 MG TAB PO SCH ×2 (08:35→20:32)
[2016-08-08] MEDS: METOPROLOL TARTRATE 25 MG TAB PO SCH ×2 (08:36→20:31)
[2016-08-08] MEDS: SODIUM CHLORIDE 0.9% FLUSH 10 ML FLUSH IV FLUSH SCH ×2 (08:39→20:37)
[2016-08-08 16:27] LABS: HEMOGLOBIN A1b 0.8 %; HEMOGLOBIN Ao 85.7 %; HEMOGLOBIN F 0.9 %; HEMOGLOBIN LA1C 1.7 %; HEMOGLOBIN P3 3.6 %
--- NOTE | 2016-08-08 17:24 | PD.CAR.PN ---
CVT Progress Note Subjective/Hospital Course: 80/ male c/o chest pain underwent elective heart cath by Dr Chang / multivessel disease 1& 2nd diagonal branch 90%, 30% LAD, 2nd OM 95% posterolateral branch 80% EF 55% PMH: CAD, HLP, HTN, PAD/ intolerance to statins 08/07/16 No complaints. Denies chest pain 08/08/16 remains chest pain free, scheduled for surgery in am Objective: GENERAL: SKIN: Warm and dry. HEAD: Normocephalic. EYES: No scleral icterus. No injection or drainage. NECK: Supple, trachea midline. No JVD or lymphadenopathy. CARDIOVASCULAR: Regular rate and rhythm without murmurs, gallops, or rubs. RESPIRATORY: Breath sounds equal bilaterally. No accessory muscle use. GASTROINTESTINAL: Abdomen soft, non-tender, nondistended. MUSCULOSKELETAL: No cyanosis, or edema. BACK: Nontender without obvious deformity. No CVA tenderness. Vital Signs Date Time Temp Pulse Resp B/P Pulse Ox O2 Delivery O2 Flow Rate FiO2 08/08/16 17:00 72 08/08/16 16:00 71 08/08/16 15:00 97 Room Air 08/08/16 15:00 98.3 69 18 117/54 97 08/08/16 15:00 68 08/08/16 14:00 62 08/08/16 13:00 63 08/08/16 12:00 97 Room Air 08/08/16 12:00 98.1 65 18 94/52 97 08/08/16 12:00 65 08/08/16 11:00 68 08/08/16 10:00 62 08/08/16 09:33 97 21 08/08/16 09:00 60 08/08/16 08:00 98.2 59 18 108/52 97 08/08/16 08:00 58 08/08/16 08:00 97 Room Air 08/08/16 07:00 53 08/08/16 06:00 63 08/08/16 05:00 59 08/08/16 04:00 98.4 56 18 122/69 97 08/08/16 04:00 56 08/08/16 04:00 Room Air 08/08/16 03:00 57 08/08/16 02:00 55 08/08/16 01:00 59 08/08/16 00:00 Room Air 08/08/16 00:00 58 08/08/16 00:00 98.2 58 18 102/58 96 08/07/16 23:00 63 08/07/16 22:00 82 08/07/16 21:00 80 08/07/16 20:00 98.2 86 20 129/71 97 08/07/16 20:00 Room Air 08/07/16 20:00 86 08/07/16 18:00 71 Result Diagram: 08/08/1631808/08/16318 Telemetry: NSR (1) CAD (coronary artery disease) Plan: cuurently stable. awaiting CABG once clopidogrel wears off (2) Abdominal pain Plan: resolved (3) Hyperlipemia Plan: intolerant to all statin (4) Peripheral arterial disease Plan: resume plavix after surgery (5) Hypertension Plan: controlled Nathalie Cruz Aug 08, 2016 17:24
[2016-08-09] VITALS (22 sets, daily range): BP systolic 86–129; BP diastolic 44–85; PULSE 54–93; RESP 16–20; TEMP 97.3–99.1; O2SAT 94–99
[2016-08-09 04:02] LABS: P2Y12 REACTION UNITS (PRU) 228 PRU (194-418)
[2016-08-09] MEDS ORDERED: GLYCOPYRROLATE 0.2 MG/ML VIAL IV ONE (05:00)
[2016-08-09] MEDS ORDERED: ceFAZolin 2 GM PREMIX 50 ML IV ONE (05:00)
[2016-08-09] MEDS ORDERED: MAGNESIUM SULFATE 1000 MG/2 ML VIAL (PED) IV ONE (05:00)
[2016-08-09] MEDS ORDERED: AMINOCAPROIC ACID INJ 250 MG/ML 20 ML VIAL IV ONE (05:00)
[2016-08-09] MEDS ORDERED: NITROGLYCERIN-DEXTROSE INJ 250 ML IV ONE (05:00)
[2016-08-09] MEDS ORDERED: CALCIUM CHLORIDE 10% SOLN 1 GRAM/10 ML SYR IV ONE (05:00)
[2016-08-09] MEDS ORDERED: HEPARIN SODIUM - SQ 10,000 UNITS/ML VIAL SQ ONE (05:00)
[2016-08-09] MEDS ORDERED: VECURONIUM BROMIDE 10 MG VIAL IV ONE (05:00)
[2016-08-09] MEDS ORDERED: ESMOLOL HCL 100 MG/10 ML VIAL IV ONE (05:00)
[2016-08-09] MEDS ORDERED: PROTAMINE SULFATE 250 MG/25 ML VIAL IV ONE (05:00)
[2016-08-09] MEDS ORDERED: DEXMEDETOMIDINE INJ 50 ML IV ONE (05:00)
[2016-08-09] MEDS: HEPARIN SODIUM - SQ 10,000 UNITS/ML VIAL ONE ×2 (06:59→08:56)
[2016-08-09] MEDS: VANCOMYCIN HCL 1000 MG VIAL ONE ×2 (06:59→08:56)
[2016-08-09] MEDS: ISOSORBIDE MONONITRATE 30 MG TAB PO SCH (07:00)
[2016-08-09] MEDS: SODIUM CHLORIDE 0.9% FLUSH 10 ML FLUSH IV FLUSH SCH ×2 (07:47→20:52)
[2016-08-09] MEDS: ASPIRIN 81 MG CHEW TAB PO SCH (07:47)
[2016-08-09] MEDS: DOCUSATE SODIUM 100 MG CAP PO SCH ×2 (07:48→20:51)
[2016-08-09] MEDS: FOLIC ACID 1 MG TAB PO SCH (07:48)
[2016-08-09] MEDS: METOPROLOL TARTRATE 25 MG TAB PO SCH ×2 (07:49→20:51)
[2016-08-09] MEDS: HYDROXYCHLOROQUINE SULFATE 200 MG TAB PO SCH ×2 (07:49→20:51)
[2016-08-09] MEDS ORDERED: SODIUM CHLORID 0.9% 500 ML INJ 500 ML IV ONE (08:32)
[2016-08-09] MEDS ORDERED: LACTATED RINGER'S 1000 ML INJ 2,000 ML IV ONE (08:32)
[2016-08-09] MEDS ORDERED: SODIUM CHLOR 0.9% 250 ML INJ 500 ML IV ONE (08:32)
[2016-08-09] MEDS ORDERED: SODIUM CHLORIDE 0.9% INJ 100 ML IV ONE (08:32)
[2016-08-09] MEDS ORDERED: NORMOSOL R INJ 2,000 ML IV ONE (08:32)
--- NOTE | 2016-08-09 11:57 | PD.OP ---
cc: Marito Chang MD; Blade Chang MD Operative Report Date of Surgery: Aug 09, 2016 Preoperative Diagnosis: Postoperative Diagnosis: Procedure: 1. Urgent Off-pump Coronary Artery Bypass Grafting x 4 with left internal mammary artery (BACA) to left anterior descending (LAD), reverse saphenous vein graft to Diagonal 2, sequential reverse saphenous vein graft to the terminal Circumflex artery and to the RPDA 2. Right Leg Endoscopic Vein [place] 3. Intraoperative Vein Mapping. . Surgeon: Marito Chang Creative Project Manager(s): Ghislaine Gu Operation and Findings: PREPROCEDURE DIAGNOSES 1. Severe Multi Vessel Coronary Artery Disease 2. 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 COPD POSTPROCEDURE DIAGNOSES Same SURGICAL PROCEDURE 1. Urgent Off-pump Coronary Artery Bypass Grafting x 4 with left internal mammary artery (BACA) to left anterior descending (LAD), reverse saphenous vein graft to Diagonal 2, sequential reverse saphenous vein graft to the terminal Circumflex artery and to the RPDA 2. Right Leg Endoscopic Vein [place] 3. Intraoperative Vein Mapping. SURGEON Marito Chang MD SKEIN TIER KHANH Lobo ANESTHESIA General endotracheal LIBRARY CONSULTANT LEONARDO Macedo MD PREPARATION ChloraPrep. COUNTS Needle, sponge, and instrument counts were correct. DRAINS Two 32-Turkmen mediastinal tubes. COMPLICATIONS None. INDICATIONS FOR PROCEDURE The patient is a 80-year-old presenting with chest pain. Patient was noted to have multi-vessel coronary artery disease and is being brought to the operating room for surgical revascularization therapy. PROCEDURE Patient was brought to the operating room and placed supine on the OR table. Following the induction of adequate general endotracheal anesthesia and placement of appropriate monitoring devices, intraoperative vein mapping was performed which revealed suitable-caliber conduit in the right lower extremity. The patient was then prepped and draped in standard sterile fashion. Next, 2500 units of intravenous heparin was given. The right greater saphenous vein was harvested endoscopically. This appeared to be a small but usable-caliber conduit. Simultaneously, a median sternotomy was performed and the left internal mammary artery dissected free off the posterior sternal table. The patient was systemically heparinized and anticoagulation monitored by serial ACT measurements. The internal mammary artery had good pulsatile flow in it and was a small-caliber conduit. The pericardium was then divided in the midline , the cradle created and targets analyzed. At this point, all anastomoses were performed in a beating-heart fashion using the Maquet stabilizing system. The left internal mammary artery was anastomosed to the distal LAD in an end-to- side fashion using 7-0 Prolene. Segment of saphenous vein graft was then anastomosed to the D2 in an end-to-side fashion using 7-0 Prolene. The next segment was anastomosed sequentially to the terminal left circumflex artery in a [id number] fashion and to the RPDA in an end-to-side fashion using 7-0 Prolene. The proximal anastomoses were then constructed to the ascending aorta in a running manner using 6-0 Prolene. All anastomotic sites were inspected and appeared to be hemostatic and patent. Protamine solution was given. Strict hemostasis was assured. The closure was undertaken. 2 chest tubes were placed. The pericardium was reapproximated in the midline. The sternum was approximated using sternal wires. The muscular and fascial layer were then closed in 3 layers. The endoscopic vein harvest site was closed in 2 layers. The patient tolerated the procedure well and was transferred to CVICU in stable condition. Marito Chang MD Aug 09, 2016 11:57
[2016-08-09] MEDS ORDERED: NITROGLYCERIN-DEXTROSE INJ 250 ML IV SCH (12:00)
[2016-08-09] MEDS ORDERED: INSULIN REGULAR (IV INFUSION) 100 UNITS in SODIUM CHLORIDE 0.9% INJ 99 ML IV SCH (12:00)
[2016-08-09] MEDS ORDERED: ACETAMINOPHEN 650 MG SUPP RECTAL PRN (12:00)
[2016-08-09] MEDS ORDERED: hydrALAZINE HCL 20 MG/ML VIAL IV PRN (12:00)
[2016-08-09] MEDS ORDERED: DOPamine INJ PREMIX 500 ML IV SCH (12:00)
[2016-08-09] MEDS ORDERED: CALCIUM CHLORIDE INJ 1 GM in SODIUM CHLORIDE 0.9% INJ 100 ML IV PRN (12:00)
[2016-08-09] MEDS ORDERED: METOPROLOL TARTRATE 5 MG/5 ML VIAL IV PUSH PRN (12:00)
[2016-08-09] MEDS ORDERED: CALCIUM CHLORIDE 10% 1 GRAM/10 ML VIAL IV PRN (12:00)
[2016-08-09] MEDS ORDERED: MAGNESIUM SULFATE INJ 2 GM in SODIUM CHLORIDE 0.9% INJ 100 ML IV PRN ×4 (12:00)
[2016-08-09] MEDS ORDERED: CLEVIDIPINE INJ 50 ML IV SCH (12:00)
[2016-08-09] MEDS ORDERED: DOBUTamine PREMIX DRIP 250 ML IV SCH (12:00)
[2016-08-09] MEDS ORDERED: Post-op Orders (for Pharmacy) MISC OTHER ONE (12:00)
[2016-08-09] MEDS ORDERED: ONDANSETRON HCL 4 MG/2 ML VIAL IV PUSH PRN (12:00)
[2016-08-09] MEDS ORDERED: DEXMEDETOMIDINE INJ 50 ML IV SCH (12:00)
[2016-08-09] MEDS ORDERED: POTASSIUM CHLORIDE 20 MEQ CONTROLLED RELEASE TAB PO PRN ×2 (12:00)
[2016-08-09] MEDS ORDERED: PHENYLEPHRINE INJ 40 MG in DEXTROSE 5% IN WATE 500 ML INJ 496 ML IV SCH ×2 (12:00)
[2016-08-09] MEDS ORDERED: EPINEPHrine (1:1000) INJ 4 MG in DEXTROSE 5% IN WATER INJ 246 ML IV SCH ×2 (12:00)
[2016-08-09] MEDS ORDERED: MEPERIDINE HCL 25 MG/ML VIAL IV PRN (12:00)
[2016-08-09] MEDS ORDERED: ALBUMIN HUMAN 5% 12.5 GM/250 ML BOTTLE IV PRN (12:00)
[2016-08-09] MEDS ORDERED: DEXTROSE 50% IN WATER 50 ML VIAL(D50) IV PUSH PRN (12:00)
[2016-08-09] MEDS ORDERED: ACETAMINOPHEN 325 MG TAB PO PRN (12:00)
[2016-08-09] MEDS ORDERED: POTASSIUM CHLOR 20 MEQ PREMIX 100 ML IV PRN ×3 (12:00)
[2016-08-09] MEDS ORDERED: ceFAZolin INJ 1,000 MG VIAL IV ONE (12:12)
[2016-08-09] MEDS ORDERED: MIDAZOLAM HCL 5 MG/5 ML VIAL ONE ×2 (12:37→12:38)
[2016-08-09] MEDS ORDERED: fentaNYL CITRATE 1000 MCG/20 ML VIAL ONE (12:38)
[2016-08-09] MEDS ORDERED: LACTATED RINGER'S 1000 ML INJ 500 ML IV PRN (13:00)
[2016-08-09] MEDS ORDERED: PHENYLEPHRINE HCL 10 MG/ML VIAL ONE (13:04)
[2016-08-09] MEDS ORDERED: RESP: ALBUTEROL 2.5 MG/IPRATROPIUM 0.5 MG NEB (PRN) NEB (13:15)
[2016-08-09] MEDS ORDERED: RESP: RACEPINEPHRINE 2.25% 0.5 ML NEB NEB PRN (13:15)
--- NOTE | 2016-08-09 13:42 | RADRPT ---
EXAM DATE/TIME: 08/09/2016 12:27 [facility] COMPARISON: CHEST PA & LAT, August 06, 2016, 10:22. INDICATIONS : Post op CABG. MEDICAL HISTORY : Hypothyroidism. Hypertension. Lupus. Peripheral arterial disease. SURGICAL HISTORY : Appendectomy. Cystoscopy, stone retrieval. Cataract, right. Cardiac catheterization. ENCOUNTER: Subsequent ACUITY: 1 day PAIN SCORE: Non-responsive. LOCATION: Bilateral chest FINDINGS: Single AP view of the chest. Endotracheal tube tip is not well demonstrated on this study due to over lap with nasogastric tube. Nasogastric tube tip is at the gastroesophageal junction. Side-port is in the distal esophagus. 2 left-sided chest tubes are seen. Right IJ central venous catheter is in place with the tip in the region of the distal SVC. Left lower lobe atelectasis. No evidence of pneumothor ax. Right lung clear. Possible small left pleural effusion. CONCLUSION: 1. Endotracheal tube tip not well-demonstrated due to overlap with nasogastric tube. 2. Left lower lobe atelectasis and possible small left pleural effusion. Balaji Hess MD on August 09, 2016 at 13:37 Board Certified Radiologist. This report was verified electronically.
[2016-08-09] MEDS: RESP: ALBUTEROL 2.5 MG/IPRATROPIUM 0.5 MG NEB (SCH) NEB ×2 (15:13→21:13)
[2016-08-09] MEDS: ACETAMINOPHEN 1000 MG/100 ML VIAL IV SCH ×2 (16:14→20:50)
[2016-08-09] MEDS: ceFAZolin 2 GM PREMIX 50 ML IV SCH (16:20)
[2016-08-09] MEDS: KETOROLAC TROMETHAMINE 30 MG/ML (IVP) VIAL IV PUSH PRN (16:21)
[2016-08-09] MEDS: ACETAMINOPHEN/HYDROcodone 325 MG/5 MG TAB PO PRN (16:22)
[2016-08-09] MEDS: AMIODARONE 200 MG TAB PO SCH (20:50)
[2016-08-09 21:04] LABS: MEAN CORPUSCULAR HGB CONC 36.2 % (32.0-36.0)
[2016-08-09] MEDS: MORPHINE SULFATE 4 MG/ML INJ IV PRN ×2 (21:57→23:51)
[2016-08-10] VITALS (13 sets, daily range): BP systolic 80–119; BP diastolic 45–66; PULSE 62–110; RESP 16–18; TEMP 97.7–98.5; O2SAT 94–98
[2016-08-10] MEDS: ceFAZolin 2 GM PREMIX 50 ML IV SCH ×3 (01:13→16:41)
[2016-08-10] MEDS: ACETAMINOPHEN 1000 MG/100 ML VIAL IV SCH ×2 (01:13→10:37)
[2016-08-10] MEDS: MORPHINE SULFATE 4 MG/ML INJ IV PRN (03:50)
[2016-08-10] MEDS: RESP: ALBUTEROL 2.5 MG/IPRATROPIUM 0.5 MG NEB (SCH) NEB ×3 (04:18→19:03)
[2016-08-10 04:57] LABS: HEMATOCRIT 26.4 % (39.0-51.0); MEAN CELL VOLUME 92.1 FL (80.0-100.0); MEAN CORPUSCULAR HEMOGLOBIN 33.3 PG (27.0-34.0); PLATELET COUNT 180 TH/MM3 (150-450); RED BLOOD COUNT 2.87 MIL/MM3 (4.50-5.90); RED CELL DISTRIBUTION WIDTH 13.5 % (11.6-17.2); WHITE BLOOD COUNT 10.1 TH/MM3 (4.0-11.0)
[2016-08-10 05:10] LABS: BICARBONATE 23.3 MEQ/L (21.0-32.0); MAGNESIUM 2.2 MG/DL (1.5-2.5); POTASSIUM 4.6 MEQ/L (3.5-5.1); REVIEW FLAG FINAL
[2016-08-10] MEDS: PANTOPRAZOLE SOD 40 MG DELAYED RELEASE TAB PO SCH (05:28)
--- NOTE | 2016-08-10 06:14 | RADRPT ---
EXAM DATE/TIME: 08/10/2016 05:11 [facility] COMPARISON: CHEST SINGLE AP, August 09, 2016, 12:27. INDICATIONS : Shortness of breath. MEDICAL HISTORY : None. SURGICAL HISTORY : None. ENCOUNTER: Subsequent ACUITY: 3 days PAIN SCORE: Non-responsive. LOCATION: Bilateral chest FINDINGS: Central and left chest tube present. Tiny apical pneumothorax on the left. Right central line in supe rior vena cava. Basilar airspace disease, left greater than right. Previous median sternotomy. CONCLUSION: 1. Central and left sided chest tube present with tiny left apical pneumothorax. Previous endotrachea l tube and nasogastric tube removed. Stable basilar airspace disease. Kamaljit Shea MD on August 10, 2016 at 6:12 Board Certified Radiologist. This report was verified electronically.
--- NOTE | 2016-08-10 08:04 | PD.CARD.PN ---
Subjective Subjective Remarks s/p CABG Objective Vital Signs / I&O Vital Signs Date Time Temp Pulse Resp B/P Pulse Ox O2 Delivery O2 Flow Rate FiO2 08/10/16 04:00 18 08/10/16 03:00 62 08/10/16 03:00 98.1 62 18 106/50 96 08/10/16 03:00 96 Nasal Cannula 3.00 08/10/16 01:45 18 08/09/16 23:00 66 08/09/16 23:00 97 Nasal Cannula 3.00 08/09/16 23:00 66 08/09/16 23:00 98.6 66 18 102/56 97 08/09/16 20:57 99 Nasal Cannula 3.00 08/09/16 19:00 61 08/09/16 19:00 99.1 61 18 116/50 94 08/09/16 19:00 94 Nasal Cannula 3.00 08/09/16 15:33 97.9 08/09/16 15:15 97.5 60 18 86/44 96 92/49 08/09/16 15:13 99 Nasal Cannula 4.00 08/09/16 15:00 97 Nasal Cannula 3.00 08/09/16 15:00 60 08/09/16 15:00 60 08/09/16 12:59 97 Nasal Cannula 3.00 08/09/16 12:59 58 08/09/16 12:40 98 Nasal Cannula 3.00 08/09/16 12:40 97 Nasal Cannula 3 08/09/16 12:40 50 08/09/16 12:40 63 08/09/16 12:33 97.3 08/09/16 12:20 99 60 08/09/16 12:15 58 08/09/16 12:15 99.0 93 20 129/63 97 92/59 08/09/16 12:15 50 08/09/16 12:15 98 Mechanical Ventilator 50 I/O 08/09/16 08/09/16 08/09/16 08/10/16 08/10/16 08/10/16 07:00 15:00 23:00 07:00 15:00 23:00 Intake Total 480 ml 2904 ml 563 ml Output Total 800 ml 730 ml 605 ml Balance -320 ml 2174 ml -42 ml Intake Oral 480 ml 400 ml IV Total 2504 ml 563 ml Output Urine Total 800 ml 450 ml 475 ml Stool Total 0 ml 0 ml Chest Tube Drainage Total 280 ml 130 ml # Bowel Movements 1 Physical Exam GENERAL: Well-nourished, well-developed patient in no apparent distress. NECK: No JVD. No carotid bruit. CARDIOVASCULAR: Regular rate and rhythm. S1/S2 no murmur, rub, or gallop. RESPIRATORY: No accessory muscle use. Clear to auscultation. Breath sounds equal bilaterally. GASTROINTESTINAL: Abdomen soft, non-tender, nondistended. MUSCULOSKELETAL: Extremities without clubbing, cyanosis, or edema. Laboratory Laboratory Tests Test 08/10/16 04:25 White Blood Count 10.1 TH/MM3 Red Blood Count 2.87 MIL/MM3 Hemoglobin 9.6 GM/DL Hematocrit 26.4 % Mean Corpuscular Volume 92.1 FL Mean Corpuscular Hemoglobin 33.3 PG Mean Corpuscular Hemoglobin 36.2 % Concent Red Cell Distribution Width 13.5 % Platelet Count 180 TH/MM3 Mean Platelet Volume 8.8 FL Sodium Level 135 MEQ/L Potassium Level 4.6 MEQ/L Chloride Level 105 MEQ/L Carbon Dioxide Level 23.3 MEQ/L Anion Gap 7 MEQ/L Blood Urea Nitrogen 15 MG/DL Creatinine 0.82 MG/DL Estimat Glomerular Filtration 91 ML/MIN Rate Random Glucose 124 MG/DL Calcium Level 8.1 MG/DL Magnesium Level 2.2 MG/DL Assessment and Plan Problem List: (1) CAD (coronary artery disease) (2) Abdominal pain (3) Hyperlipemia (4) Peripheral arterial disease (5) Hypertension Assessment and Plan s/p CABG on Monday. Recovering well. Continue present medical regimen. We will sign off and he can f/u with us OPD Morris Stratton Aug 10, 2016 08:04
[2016-08-10] MEDS ORDERED: SOD PHOSPHATE/SOD BIPHOSPHATE (ADULT) ENEMA 133ML RECTAL PRN (08:45)
[2016-08-10] MEDS ORDERED: DEXTROSE 50% IN WATER 50 ML VIAL(D50) IV PRN (08:45)
[2016-08-10] MEDS ORDERED: GLUCAGON 1 MG/ML VIAL OTHER PRN (08:45)
[2016-08-10] MEDS ORDERED: BISACODYL 10 MG SUPP RECTAL PRN (08:45)
[2016-08-10] MEDS: SODIUM CHLORIDE 0.9% FLUSH 10 ML FLUSH IV FLUSH SCH ×2 (09:00→21:00)
--- NOTE | 2016-08-10 09:28 | PD.CAR.PN ---
CVT Progress Note CVT: POD #: 1 Subjective/Hospital Course: 80/ male c/o chest pain underwent elective heart cath by Dr Chang / multivessel disease 1& 2nd diagonal branch 90%, 30% LAD, 2nd OM 95% posterolateral branch 80% EF 55% PMH: CAD, HLP, HTN, PAD/ intolerance to statins 08/07/16 No complaints. Denies chest pain 08/08/16 remains chest pain free, scheduled for surgery in am 08/09 . Urgent Off-pump Coronary Artery Bypass Grafting x 4 with left internal mammary artery (BACA) to left anterior descending (LAD), reverse saphenous vein graft to Diagonal 2, sequential reverse saphenous vein graft to the terminal Circumflex artery and to the RPDA 2. Right Leg Endoscopic Vein [place] 2800 crystalloid, 250cc cell saver, EBL 500cc extubated after surgery 08/10 slowly weaning off Wayne gtt additional IV fluid and albumin given this am eval for transfer later today, when off Wayne and BP stable Objective: GENERAL: SKIN: Warm and dry./ prevena to chest and mehrdad wrap to right leg HEAD: Normocephalic. EYES: No scleral icterus. No injection or drainage. NECK: Supple, trachea midline. No JVD or lymphadenopathy. CARDIOVASCULAR: Regular rate and rhythm without murmurs, gallops, or rubs. RESPIRATORY: diminished in bases / chest tube to wall suction/ no air leak drained 260cc/ 12 hrs CXR noted/ small tiny left PTX Breath sounds equal bilaterally. No accessory muscle use. GASTROINTESTINAL: Abdomen soft, non-tender, nondistended. MUSCULOSKELETAL: No cyanosis, or edema. BACK: Nontender without obvious deformity. No CVA tenderness. Vital Signs Date Time Temp Pulse Resp B/P Pulse Ox O2 Delivery O2 Flow Rate FiO2 08/10/16 04:00 18 08/10/16 03:00 62 08/10/16 03:00 98.1 62 18 106/50 96 08/10/16 03:00 96 Nasal Cannula 3.00 08/10/16 01:45 18 08/09/16 23:00 66 08/09/16 23:00 97 Nasal Cannula 3.00 08/09/16 23:00 66 08/09/16 23:00 98.6 66 18 102/56 97 08/09/16 20:57 99 Nasal Cannula 3.00 08/09/16 19:00 61 08/09/16 19:00 99.1 61 18 116/50 94 08/09/16 19:00 94 Nasal Cannula 3.00 08/09/16 15:33 97.9 08/09/16 15:15 97.5 60 18 86/44 96 92/49 08/09/16 15:13 99 Nasal Cannula 4.00 08/09/16 15:00 97 Nasal Cannula 3.00 08/09/16 15:00 60 08/09/16 15:00 60 08/09/16 12:59 97 Nasal Cannula 3.00 08/09/16 12:59 58 08/09/16 12:40 98 Nasal Cannula 3.00 08/09/16 12:40 97 Nasal Cannula 3 08/09/16 12:40 50 08/09/16 12:40 63 08/09/16 12:33 97.3 08/09/16 12:20 99 60 08/09/16 12:15 58 08/09/16 12:15 99.0 93 20 129/63 97 92/59 08/09/16 12:15 50 08/09/16 12:15 98 Mechanical Ventilator 50 Labs: Laboratory Tests Test 08/10/16 04:25 White Blood Count 10.1 TH/MM3 (4.0-11.0) Red Blood Count 2.87 MIL/MM3 (4.50-5.90) Hemoglobin 9.6 GM/DL (13.0-17.0) Hematocrit 26.4 % (39.0-51.0) Mean Corpuscular Volume 92.1 FL (80.0-100.0) Mean Corpuscular Hemoglobin 33.3 PG (27.0-34.0) Mean Corpuscular Hemoglobin 36.2 % Concent (32.0-36.0) Red Cell Distribution Width 13.5 % (11.6-17.2) Platelet Count 180 TH/MM3 (150-450) Mean Platelet Volume 8.8 FL (7.0-11.0) Sodium Level 135 MEQ/L (136-145) Potassium Level 4.6 MEQ/L (3.5-5.1) Chloride Level 105 MEQ/L (98-107) Carbon Dioxide Level 23.3 MEQ/L (21.0-32.0) Anion Gap 7 MEQ/L (5-15) Blood Urea Nitrogen 15 MG/DL (7-18) Creatinine 0.82 MG/DL (0.60-1.30) Estimat Glomerular Filtration 91 ML/MIN (>89) Rate Random Glucose 124 MG/DL (74-106) Calcium Level 8.1 MG/DL (8.5-10.1) Magnesium Level 2.2 MG/DL (1.5-2.5) Result Diagram: 08/10/1642408/10/16424 Telemetry: NSR (1) CAD (coronary artery disease) (2) S/P CABG x 3 Plan: ASA, plavix, intolerant to statins start BB this pm if BP allows wean off Wayne gtt + 1 kg from surgery +2100/ 24 hrs (3) Hyperlipemia Plan: intolerant to all statin (4) Peripheral arterial disease Plan: plavix (5) Hypertension Plan: controlled (6) Carotid artery disease Plan: outpt f/u with Nathalie Atkins Aug 10, 2016 09:28
[2016-08-10] MEDS: INSULIN ASPART SUPPLEMENTAL SCALE SQ SCH ×3 (10:00→22:00)
[2016-08-10] MEDS: MAGNESIUM HYDROXIDE SUSP 30 ML CUP PO SCH (10:32)
[2016-08-10] MEDS: CLOPIDOGREL 75 MG TAB PO SCH (10:33)
[2016-08-10] MEDS: ASPIRIN 81 MG CHEW TAB PO SCH (10:33)
[2016-08-10] MEDS: ACETAMINOPHEN/HYDROcodone 325 MG/5 MG TAB PO PRN ×2 (10:33→21:13)
[2016-08-10] MEDS: FOLIC ACID 1 MG TAB PO SCH (10:34)
[2016-08-10] MEDS: AMIODARONE 200 MG TAB PO SCH ×2 (10:34→21:13)
[2016-08-10] MEDS: HYDROXYCHLOROQUINE SULFATE 200 MG TAB PO SCH ×2 (10:34→21:00)
[2016-08-10] MEDS: MULTIVITAMINS/MINERALS THERAPEUTIC TAB PO SCH (10:34)
[2016-08-10] MEDS: DOCUSATE SODIUM 100 MG CAP PO SCH ×2 (10:34→21:12)
[2016-08-10] MEDS: METOCLOPRAMIDE HCL 10 MG/2 ML VIAL IV SCH ×3 (10:37→16:41)
[2016-08-10] MEDS: KETOROLAC TROMETHAMINE 30 MG/ML (IVP) VIAL IV PUSH PRN (16:55)
--- NOTE | 2016-08-10 20:17 | EKG ---
Date Performed: 08/10/2016 Time Performed: 04:59:30 PTAGE: 80 years EKG: Sinus rhythm Inferior infarct - age undetermined Mild diffuse ST elevation Abnormal ECG NO PREVIOUS TRACING DOCTOR: Alverto Julien Interpretating Date/Time 08/10/2016 20:15:12
[2016-08-10] MEDS: METOPROLOL TARTRATE 25 MG TAB PO SCH (21:12)
[2016-08-10] MEDS: SENNOSIDES 8.6 MG TAB PO SCH (21:13)
[2016-08-10] MEDS: ARTIFICIAL TEARS OPTH SOLN 15 ML BTL EACH EYE PRN (21:28)
[2016-08-11] VITALS (28 sets, daily range): BP systolic 108–140; BP diastolic 59–78; PULSE 66–108; RESP 18–20; TEMP 97.6–98.4; O2SAT 93–98
[2016-08-11] MEDS: INSULIN ASPART SUPPLEMENTAL SCALE SQ SCH ×3 (02:00→10:00)
[2016-08-11] MEDS: METOCLOPRAMIDE HCL 10 MG/2 ML VIAL IV SCH ×2 (02:04→06:44)
[2016-08-11] MEDS: ceFAZolin 2 GM PREMIX 50 ML IV SCH (02:04)
[2016-08-11] MEDS: KETOROLAC TROMETHAMINE 30 MG/ML (IVP) VIAL IV PUSH PRN (04:21)
[2016-08-11] MEDS: ACETAMINOPHEN/HYDROcodone 325 MG/5 MG TAB PO PRN ×3 (04:21→22:10)
[2016-08-11 05:03] LABS: AUTOMATED NEUTROPHIL # 10.3 TH/MM3 (1.8-7.7); EOSINOPHIL % 0.1 % (0.0-4.0); HEMATOCRIT 23.9 % (39.0-51.0); HEMO FLAGS DIFF FINAL; LYMPH % 5.9 % (9.0-44.0); LYMPHOCYTE # 0.7 TH/MM3 (1.0-4.8); MEAN CELL VOLUME 93.2 FL (80.0-100.0); MEAN CORPUSCULAR HEMOGLOBIN 31.4 PG (27.0-34.0); MEAN CORPUSCULAR HGB CONC 33.7 % (32.0-36.0); MONO % 6.5 % (0.0-8.0); NEUT % 87.5 % (16.0-70.0); PLATELET COUNT 157 TH/MM3 (150-450); RED BLOOD COUNT 2.56 MIL/MM3 (4.50-5.90); RED CELL DISTRIBUTION WIDTH 13.7 % (11.6-17.2); WHITE BLOOD COUNT 11.8 TH/MM3 (4.0-11.0)
[2016-08-11 05:14] LABS: BICARBONATE 26.9 MEQ/L (21.0-32.0); MAGNESIUM 2.4 MG/DL (1.5-2.5); POTASSIUM 4.1 MEQ/L (3.5-5.1)
[2016-08-11] MEDS: PANTOPRAZOLE SOD 40 MG DELAYED RELEASE TAB PO SCH (06:44)
[2016-08-11] MEDS: MULTIVITAMINS/MINERALS THERAPEUTIC TAB PO SCH (08:34)
[2016-08-11] MEDS: MAGNESIUM HYDROXIDE SUSP 30 ML CUP PO SCH (08:34)
[2016-08-11] MEDS: ASPIRIN 81 MG CHEW TAB PO SCH (08:35)
[2016-08-11] MEDS: FOLIC ACID 1 MG TAB PO SCH (08:35)
[2016-08-11] MEDS: AMIODARONE 200 MG TAB PO SCH ×2 (08:35→22:11)
[2016-08-11] MEDS: CLOPIDOGREL 75 MG TAB PO SCH (08:35)
[2016-08-11] MEDS: METOPROLOL TARTRATE 25 MG TAB PO SCH ×2 (08:36→22:10)
[2016-08-11] MEDS: DOCUSATE SODIUM 100 MG CAP PO SCH ×2 (08:36→22:11)
[2016-08-11] MEDS: SODIUM CHLORIDE 0.9% FLUSH 10 ML FLUSH IV FLUSH SCH ×2 (08:36→22:12)
[2016-08-11] MEDS: RESP: ALBUTEROL 2.5 MG/IPRATROPIUM 0.5 MG NEB (SCH) NEB ×3 (08:45→19:44)
[2016-08-11] MEDS: HYDROXYCHLOROQUINE SULFATE 200 MG TAB PO SCH ×2 (09:00→23:03)
[2016-08-11] MEDS: POLYETHYLENE GLYCOL 17 GM PKG PO SCH (09:00)
--- NOTE | 2016-08-11 13:57 | HHI.FF ---
Face to Face Verification Diagnosis: (1) CAD (coronary artery disease) (2) Hyperlipemia (3) Hypertension (4) Peripheral arterial disease (5) Carotid artery disease (6) S/P CABG x 3 Physical Therapy Order: Evaluate and Treat Home Health Nursing Order: Signs/symptoms of disease process Wound care and dressing changes Nursing assessment with vital signs Instructions: Heart and Vascular Surgery patients *Special attention to sternal dressing Mandatory frequency Assess and evaluation, 4 days in a row The next week 3X week 2 times a week for 4 weeks 1 time a week for 5 weeks Schedule Heart and Vascular patients for full 60 day certification period Initial visit Review Open Heart Surgery Discharge Instructions (Sternal precautions, Activity, Elastic hose, Incision care, Driving, Incentive spirometry, Smoking, [place], Work and other) Need Betadine to paint incision Medication reconciliation Importance of follow up care/ check on appointments Make calendar record temperature daily When to call [facility] nurse, review instructions, phone list Incentive Spirometry, demonstration Visit 1- Begin discharge instruction for patient family and/ or caregiver using teach back method- Signs and symptoms of infection Disease characteristics Medicines and side effects Foods and nutrition/ appetite Infection control/ hand washing/ hygiene Visit 2- Continue teaching Discharge instructions- include additional information on smoking cessation , sternal dressing (sternal vac) Visit 3- Continue teaching- Cough and deep breathing, incision monitoring. Choose my plate Visit 4- Continue teaching- Discuss limitations Discuss how they are feeling Discuss progress toward goals Remaining visits- continue teaching and monitoring Incentive spirometry Q1 hr x 10, while awake, also use acapella device hourly whole awake Sternal Breast Bone Precautions: NO pushing or pulling, ( pt must use sternal pillow to support chest with all activities and with coughing ( takes up to 3 months breast bone to heal ) Daily incision care: ok to shower daily, no tub bath. Wash all incisions with liquid dial soap, clean wash cloth to each site, rinse and pat dry. Observe for any signs of infection, such as drainage which is dark yellow, meyers, green or foul smelling. Immediately report to the surgeon any drainage from the chest incision, or legs, and for any abnormal drainage from the chest tube sites. Notify surgeon if any temp >101.5 degrees F. When specialty dressing removed/ or if you do not have one, continue to shower daily as above, then rinse and pat incision dry and paint with betadine daily x 5 days. Allow steri strips to fall off if you have any. Avoid lotions, creams, salves, oils, etc. for the first month Please see attached forms for additional instructions regarding post Open Heart specialty wound vacuum dressings. DIDI or Prevena , Dressing to be removed by Nursing staff on _08/15/16 () F/U appointment: as per DC instructions: PCP in 2 weeks, CV surgeon 2 weeks, Medical Technologist Hematology 3-4 weeks For any questions regarding incisions/ dressing / meds / post op care or above Symptoms, Monday 8am-5pm Heart & Vascular Surgery Office ( Dr. Chang & Dr. Jordan), After Hours / Nights (5pm -8am) Weekends and Holidays Please call [facility] Charge Nurse I have seen patient Eric White on 08/11/16. My clinical findings support the need for the requested home health care services because: Deconditioned w/ increased weakness I certify that my clinical findings support that this patient is homebound because: Impaired cognitive ability/safety Nathalie Cruz Aug 11, 2016 13:57
--- NOTE | 2016-08-11 14:03 | PD.CAR.PN ---
CVT Progress Note CVT: POD #: 2 Subjective/Hospital Course: 80/ male c/o chest pain underwent elective heart cath by Dr Chang / multivessel disease 1& 2nd diagonal branch 90%, 30% LAD, 2nd OM 95% posterolateral branch 80% EF 55% PMH: CAD, HLP, HTN, PAD/ intolerance to statins 08/07/16 No complaints. Denies chest pain 08/08/16 remains chest pain free, scheduled for surgery in am 08/09 . Urgent Off-pump Coronary Artery Bypass Grafting x 4 with left internal mammary artery (BACA) to left anterior descending (LAD), reverse saphenous vein graft to Diagonal 2, sequential reverse saphenous vein graft to the terminal Circumflex artery and to the RPDA 2. Right Leg Endoscopic Vein [place] 2800 crystalloid, 250cc cell saver, EBL 500cc extubated after surgery 08/10 slowly weaning off Wayne gtt additional IV fluid and albumin given this am eval for transfer later today, when off Wayne and BP stable 08/11 rhythm stable, chest tubes removed without difficulty BP stable HGB 8.0/ recheck in am , quiac stool, on PPI , start ferrous sulfate continue pulm toileting Objective: Vital Signs Date Time Temp Pulse Resp B/P Pulse Ox O2 Delivery O2 Flow Rate FiO2 08/11/16 11:30 98.3 78 18 113/60 96 08/11/16 11:01 80 08/11/16 10:00 80 08/11/16 09:00 80 08/11/16 08:45 96 Nasal Cannula 3.00 08/11/16 08:30 97.6 88 18 108/59 97 08/11/16 08:00 82 08/11/16 07:00 66 08/11/16 06:00 68 08/11/16 05:00 78 08/11/16 04:00 86 08/11/16 04:00 98.0 85 20 131/72 98 08/11/16 03:28 90 08/11/16 02:00 74 08/11/16 01:00 72 08/11/16 00:00 82 08/10/16 23:43 97.7 84 18 99/65 96 08/10/16 23:00 82 08/10/16 22:00 88 08/10/16 21:00 108 08/10/16 20:00 97.7 94 18 114/66 97 08/10/16 19:03 98 Nasal Cannula 3.00 08/10/16 19:00 110 08/10/16 18:00 71 08/10/16 15:01 97.9 82 16 119/63 98 Labs: Laboratory Tests Test 08/11/16 04:05 White Blood Count 11.8 TH/MM3 (4.0-11.0) Red Blood Count 2.56 MIL/MM3 (4.50-5.90) Hemoglobin 8.0 GM/DL (13.0-17.0) Hematocrit 23.9 % (39.0-51.0) Mean Corpuscular Volume 93.2 FL (80.0-100.0) Mean Corpuscular Hemoglobin 31.4 PG (27.0-34.0) Mean Corpuscular Hemoglobin 33.7 % Concent (32.0-36.0) Red Cell Distribution Width 13.7 % (11.6-17.2) Platelet Count 157 TH/MM3 (150-450) Mean Platelet Volume 8.7 FL (7.0-11.0) Neutrophils (%) (Auto) 87.5 % (16.0-70.0) Lymphocytes (%) (Auto) 5.9 % (9.0-44.0) Monocytes (%) (Auto) 6.5 % (0.0-8.0) Eosinophils (%) (Auto) 0.1 % (0.0-4.0) Basophils (%) (Auto) 0.0 % (0.0-2.0) Neutrophils # (Auto) 10.3 TH/MM3 (1.8-7.7) Lymphocytes # (Auto) 0.7 TH/MM3 (1.0-4.8) Monocytes # (Auto) 0.8 TH/MM3 (0-0.9) Eosinophils # (Auto) 0.0 TH/MM3 (0-0.4) Basophils # (Auto) 0.0 TH/MM3 (0-0.2) CBC Comment DIFF FINAL Differential Comment Sodium Level 138 MEQ/L (136-145) Potassium Level 4.1 MEQ/L (3.5-5.1) Chloride Level 103 MEQ/L (98-107) Carbon Dioxide Level 26.9 MEQ/L (21.0-32.0) Anion Gap 8 MEQ/L (5-15) Blood Urea Nitrogen 19 MG/DL (7-18) Creatinine 0.86 MG/DL (0.60-1.30) Estimat Glomerular Filtration 86 ML/MIN (>89) Rate Random Glucose 109 MG/DL (74-106) Calcium Level 8.0 MG/DL (8.5-10.1) Magnesium Level 2.4 MG/DL (1.5-2.5) Result Diagram: 08/11/1640408/11/16404 EKG: NSR (1) CAD (coronary artery disease) (2) S/P CABG x 3 Plan: ASA, plavix, intolerant to statins on BB chest tubes removed (3) Hyperlipemia Plan: intolerant to all statin (4) Peripheral arterial disease Plan: plavix (5) Hypertension Plan: controlled (6) Carotid artery disease Plan: outpt f/u with Dr Smart (7) Blood loss anemia Plan: HGB 8.0 , check quaic stool/ start ferrous sulfate Nathalie Cruz Aug 11, 2016 14:03
[2016-08-11] MEDS: FERROUS SULFATE 325 MG (65 MG ELEMENTAL IRON) TAB PO SCH (15:52)
[2016-08-11] MEDS: SENNOSIDES 8.6 MG TAB PO SCH (22:10)
[2016-08-11] MEDS: ALPRAZolam 0.25 MG TAB PO PRN (22:11)
[2016-08-12] VITALS (27 sets, daily range): BP systolic 106–139; BP diastolic 63–78; PULSE 71–118; RESP 16–20; TEMP 97.5–98.9; O2SAT 93–99
[2016-08-12] MEDS: ACETAMINOPHEN/HYDROcodone 325 MG/5 MG TAB PO PRN ×3 (01:54→22:36)
[2016-08-12 04:52] LABS: AUTOMATED NEUTROPHIL # 7.9 TH/MM3 (1.8-7.7); BASOPHIL % 0.1 % (0.0-2.0); EOSINOPHIL # 0.1 TH/MM3 (0-0.4); EOSINOPHIL % 0.7 % (0.0-4.0); HEMATOCRIT 23.9 % (39.0-51.0); HEMO FLAGS DIFF FINAL; LYMPH % 10.9 % (9.0-44.0); LYMPHOCYTE # 1.1 TH/MM3 (1.0-4.8); MEAN CELL VOLUME 93.5 FL (80.0-100.0); MEAN CORPUSCULAR HGB CONC 35.3 % (32.0-36.0); NEUT % 81.3 % (16.0-70.0); PLATELET COUNT 191 TH/MM3 (150-450); RED BLOOD COUNT 2.56 MIL/MM3 (4.50-5.90); RED CELL DISTRIBUTION WIDTH 13.9 % (11.6-17.2); WHITE BLOOD COUNT 9.7 TH/MM3 (4.0-11.0)
[2016-08-12] MEDS: PANTOPRAZOLE SOD 40 MG DELAYED RELEASE TAB PO SCH (06:00)
--- NOTE | 2016-08-12 06:24 | RADRPT ---
EXAM DATE/TIME: 08/12/2016 04:58 [place] COMPARISON: CHEST SINGLE AP, August 10, 2016, 5:11. INDICATIONS : Evaluate for pneumothorax. MEDICAL HISTORY : Hypertension. SURGICAL HISTORY : Cardiac catheterization. ENCOUNTER: Subsequent ACUITY: 1 week PAIN SCORE: Non-responsive. LOCATION: Bilateral chest FINDINGS: Portable AP view of the chest demonstrates a normal-sized cardiac silhouette in this patient post med dana sternotomy. Right IJ line remains present with tip in the right atrium. Mediastinal drain and lef t chest tube have been removed. There is a left basilar pleural-parenchymal opacity and there is mild airspace opacity at the right lung base. No pneumothorax is visualized. CONCLUSION: 1. No pneumothorax is visualized following removal of the left chest tube and mediastinal drain. 2. There is a left basilar pleural-parenchymal opacity representing pleural effusion with associated volume loss and/or consolidation. There is suspected atelectasis at the right lung base. Andres richards MD on August 12, 2016 at 6:21 Board Certified Radiologist. This report was verified electronically.
[2016-08-12] MEDS: RESP: ALBUTEROL 2.5 MG/IPRATROPIUM 0.5 MG NEB (SCH) NEB ×2 (07:14→11:42)
[2016-08-12] MEDS: CLOPIDOGREL 75 MG TAB PO SCH (09:11)
[2016-08-12] MEDS: ASPIRIN 81 MG CHEW TAB PO SCH (09:11)
[2016-08-12] MEDS: METOPROLOL TARTRATE 25 MG TAB PO SCH ×2 (09:11→22:37)
[2016-08-12] MEDS: MULTIVITAMINS/MINERALS THERAPEUTIC TAB PO SCH (09:11)
[2016-08-12] MEDS: AMIODARONE 200 MG TAB PO SCH ×2 (09:11→22:31)
[2016-08-12] MEDS: FOLIC ACID 1 MG TAB PO SCH (09:11)
[2016-08-12] MEDS: HYDROXYCHLOROQUINE SULFATE 200 MG TAB PO SCH ×2 (09:11→22:29)
[2016-08-12] MEDS: MAGNESIUM HYDROXIDE SUSP 30 ML CUP PO SCH (09:12)
[2016-08-12] MEDS: SODIUM CHLORIDE 0.9% FLUSH 10 ML FLUSH IV FLUSH SCH ×2 (09:12→22:32)
[2016-08-12] MEDS: DOCUSATE SODIUM 100 MG CAP PO SCH ×2 (09:12→21:00)
[2016-08-12] MEDS ORDERED: FUROSEMIDE 20 MG/2 ML VIAL IV PUSH ONE (09:45)
[2016-08-12] MEDS ORDERED: POTASSIUM CHLORIDE 10 MEQ CONTROLLED RELEASE TAB PO ONE (09:45)
[2016-08-12] MEDS: FERROUS SULFATE 325 MG (65 MG ELEMENTAL IRON) TAB PO SCH ×2 (14:22→18:28)
--- NOTE | 2016-08-12 15:53 | PD.CAR.PN ---
CVT Progress Note CVT: POD #: 3 Subjective/Hospital Course: 80/ male c/o chest pain underwent elective heart cath by Dr Chang / multivessel disease 1& 2nd diagonal branch 90%, 30% LAD, 2nd OM 95% posterolateral branch 80% EF 55% PMH: CAD, HLP, HTN, PAD/ intolerance to statins 08/07/16 No complaints. Denies chest pain 08/08/16 remains chest pain free, scheduled for surgery in am 08/09 . Urgent Off-pump Coronary Artery Bypass Grafting x 4 with left internal mammary artery (BACA) to left anterior descending (LAD), reverse saphenous vein graft to Diagonal 2, sequential reverse saphenous vein graft to the terminal Circumflex artery and to the RPDA 2. Right Leg Endoscopic Vein [place] 2800 crystalloid, 250cc cell saver, EBL 500cc extubated after surgery 08/10 slowly weaning off Wayne gtt additional IV fluid and albumin given this am eval for transfer later today, when off Wayne and BP stable 08/11 rhythm stable, chest tubes removed without difficulty BP stable HGB 8.0/ recheck in am , quiac stool, on PPI , start ferrous sulfate continue pulm toileting 08/12 on room air , ambulating with PT + BM , HGB stable CXR noted has small left pleural effusion Objective: GENERAL: SKIN: Warm and dry./ prevena to chest / leg incision intact HEAD: Normocephalic. EYES: No scleral icterus. No injection or drainage. NECK: Supple, trachea midline. No JVD or lymphadenopathy. CARDIOVASCULAR: Regular rate and rhythm without murmurs, gallops, or rubs. RESPIRATORY: diminished in bases / left > right Breath sounds equal bilaterally. No accessory muscle use. GASTROINTESTINAL: Abdomen soft, non-tender, nondistended. MUSCULOSKELETAL: No cyanosis, or edema. BACK: Nontender without obvious deformity. No CVA tenderness. Vital Signs Date Time Temp Pulse Resp B/P Pulse Ox O2 Delivery O2 Flow Rate FiO2 08/12/16 08:30 98.4 90 18 117/74 93 08/12/16 07:17 99 Nasal Cannula 2.00 08/12/16 05:00 77 08/12/16 04:48 97.5 79 16 106/65 96 08/12/16 04:00 87 08/12/16 03:00 71 08/12/16 02:00 72 08/12/16 01:34 98.4 93 20 120/63 96 08/12/16 01:00 80 08/12/16 00:00 82 08/11/16 23:00 98 08/11/16 22:00 94 08/11/16 21:00 98.4 98 20 132/78 95 08/11/16 21:00 108 08/11/16 20:00 86 08/11/16 19:44 93 08/11/16 19:00 95 08/11/16 17:01 96 08/11/16 16:00 100 Labs: Laboratory Tests Test 08/12/16 04:30 White Blood Count 9.7 TH/MM3 (4.0-11.0) Red Blood Count 2.56 MIL/MM3 (4.50-5.90) Hemoglobin 8.4 GM/DL (13.0-17.0) Hematocrit 23.9 % (39.0-51.0) Mean Corpuscular Volume 93.5 FL (80.0-100.0) Mean Corpuscular Hemoglobin 33.0 PG (27.0-34.0) Mean Corpuscular Hemoglobin 35.3 % Concent (32.0-36.0) Red Cell Distribution Width 13.9 % (11.6-17.2) Platelet Count 191 TH/MM3 (150-450) Mean Platelet Volume 8.4 FL (7.0-11.0) Neutrophils (%) (Auto) 81.3 % (16.0-70.0) Lymphocytes (%) (Auto) 10.9 % (9.0-44.0) Monocytes (%) (Auto) 7.0 % (0.0-8.0) Eosinophils (%) (Auto) 0.7 % (0.0-4.0) Basophils (%) (Auto) 0.1 % (0.0-2.0) Neutrophils # (Auto) 7.9 TH/MM3 (1.8-7.7) Lymphocytes # (Auto) 1.1 TH/MM3 (1.0-4.8) Monocytes # (Auto) 0.7 TH/MM3 (0-0.9) Eosinophils # (Auto) 0.1 TH/MM3 (0-0.4) Basophils # (Auto) 0.0 TH/MM3 (0-0.2) CBC Comment DIFF FINAL Differential Comment Result Diagram: 08/12/16 0430 08/11/16 0405 Telemetry: NSR (1) CAD (coronary artery disease) (2) S/P CABG x 3 Plan: ASA, plavix, intolerant to statins on BB gentle diuresis pulm toileting nebs, ezpap , acapella eval for dc home with [facility] tommorow (3) Hyperlipemia Plan: intolerant to all statin (4) Peripheral arterial disease Plan: plavix (5) Hypertension Plan: controlled (6) Carotid artery disease Plan: outpt f/u with Dr Smart (7) Blood loss anemia Plan: HGB 8.0 >8.4, check quaic stool/ ferrous sulfate Nathalie Cruz Aug 12, 2016 15:53
[2016-08-12] MEDS ORDERED: OMEP20TA PO (16:11)
[2016-08-12] MEDS ORDERED: PLAV75TA29 PO (16:11)
[2016-08-12] MEDS ORDERED: FERR325T PO (16:11)
[2016-08-12] MEDS ORDERED: AMIO200T PO (16:11)
[2016-08-12] MEDS ORDERED: METO25TA3 PO (16:11)
--- NOTE | 2016-08-12 16:18 | HHI.DS ---
Discharge Summary Admission Date Aug 05, 2016 at 16:26 Discharge Date: Aug 13, 2016 Admitting Diagnosis chest pain , CAD (1) CAD (coronary artery disease) Diagnosis: Principal (2) Hyperlipemia Diagnosis: Principal (3) Hypertension Diagnosis: Principal (4) Peripheral arterial disease Diagnosis: Principal (5) Carotid artery disease Diagnosis: Principal (6) Blood loss anemia Diagnosis: Secondary (7) S/P CABG x 3 Diagnosis: Secondary Procedures 08/09 1. Urgent Off-pump Coronary Artery Bypass Grafting x 4 with left internal mammary artery (BACA) to left anterior descending (LAD), reverse saphenous vein graft to Diagonal 2, sequential reverse saphenous vein graft to the terminal Circumflex artery and to the RPDA 2. Right Leg Endoscopic Vein [place] 3. Intraoperative Vein Mapping. Brief History 80/ male c/o chest pain underwent elective heart cath by Dr Chang / multivessel disease 1& 2nd diagonal branch 90%, 30% LAD, 2nd OM 95% posterolateral branch 80% EF 55% PMH: CAD, HLP, HTN, PAD/ intolerance to statins CBC/BMP: 08/12/16 0430 08/11/16 0405 Significant Findings Laboratory Tests Test 08/10/16 08/11/16 08/12/16 04:25 04:05 04:30 Red Blood Count 2.87 MIL/MM3 2.56 MIL/MM3 2.56 MIL/MM3 (4.50-5.90) (4.50-5.90) (4.50-5.90) Hemoglobin 9.6 GM/DL 8.0 GM/DL 8.4 GM/DL (13.0-17.0) (13.0-17.0) (13.0-17.0) Hematocrit 26.4 % 23.9 % 23.9 % (39.0-51.0) (39.0-51.0) (39.0-51.0) Mean Corpuscular Hemoglobin 36.2 % Concent (32.0-36.0) Sodium Level 135 MEQ/L (136-145) Random Glucose 124 MG/DL 109 MG/DL (74-106) (74-106) Calcium Level 8.1 MG/DL 8.0 MG/DL (8.5-10.1) (8.5-10.1) White Blood Count 11.8 TH/MM3 (4.0-11.0) Neutrophils (%) (Auto) 87.5 % 81.3 % (16.0-70.0) (16.0-70.0) Lymphocytes (%) (Auto) 5.9 % (9.0-44.0) Neutrophils # (Auto) 10.3 TH/MM3 7.9 TH/MM3 (1.8-7.7) (1.8-7.7) Lymphocytes # (Auto) 0.7 TH/MM3 (1.0-4.8) Blood Urea Nitrogen 19 MG/DL (7-18) Estimat Glomerular Filtration 86 ML/MIN (>89) Rate Imaging Last Impressions Chest X-Ray 08/12/16 0600 Signed Impressions: Service Date/Time: Friday, August 12, 2016 04:58 - CONCLUSION: 1. No pneumothorax is visualized following removal of the left chest tube and mediastinal drain. 2. There is a left basilar pleural-parenchymal opacity representing pleural effusion with associated volume loss and/or consolidation. There is suspected atelectasis at the right lung base. Andres Zamarripa MD Lower Extremity Ultrasound 08/05/16 0000 Signed Impressions: Service Date/Time: Friday, August 05, 2016 13:39 - CONCLUSION: Bilateral saphenous vein mapping as described above. Yousuf Hernandez MD Carotid Artery Ultrasound 08/05/16 0000 Signed Impressions: Service Date/Time: Friday, August 05, 2016 13:17 - CONCLUSION: Elevation of the peak systolic velocities of the proximal internal carotid arteries and external carotid arteries bilaterally in the range of 50-69%% stenosis without significant elevation of the ICA/CCA ratio in this range. CTA of the carotids would be helpful for further evaluation. Calcified atherosclerotic are noted within the carotid bulbs bilaterally. Yousuf Hernandez MD PE at Discharge GENERAL: SKIN: Warm and dry.prevena dressing, incision intact to chest HEAD: Normocephalic. EYES: No scleral icterus. No injection or drainage. NECK: Supple, trachea midline. No JVD or lymphadenopathy. CARDIOVASCULAR: Regular rate and rhythm without murmurs, gallops, or rubs. RESPIRATORY: diminished in bases L>R . No accessory muscle use. GASTROINTESTINAL: Abdomen soft, non-tender, nondistended. MUSCULOSKELETAL: No cyanosis, or edema. BACK: Nontender without obvious deformity. No CVA tenderness. Hospital Course 3/26/17 No complaints. Denies chest pain 08/08/16 remains chest pain free, scheduled for surgery in am 08/09 . Urgent Off-pump Coronary Artery Bypass Grafting x 4 with left internal mammary artery (BACA) to left anterior descending (LAD), reverse saphenous vein graft to Diagonal 2, sequential reverse saphenous vein graft to the terminal Circumflex artery and to the RPDA 2. Right Leg Endoscopic Vein [place] 2800 crystalloid, 250cc cell saver, EBL 500cc extubated after surgery 08/10 slowly weaning off Wayne gtt additional IV fluid and albumin given this am eval for transfer later today, when off Wayne and BP stable 08/11 rhythm stable, chest tubes removed without difficulty BP stable HGB 8.0/ recheck in am , quiac stool, on PPI , start ferrous sulfate continue pulm toileting 08/12 on room air , ambulating with PT + BM , HGB stable CXR noted has small left pleural effusion gentle diuresis eval for dc home tomorrow with [facility] Pt Condition on Discharge: Good Discharge Disposition: Disch w/ Home Health Serv Discharge Instructions DIET: Follow Instructions for: Heart Healthy Diet Activities you can perform: Shower Only-No Bath Activities to avoid: Prolonged Standing, Strenuous Activity, Driving Additional Activity Instructio: no lifting > 8 lbs or gallon of milk Follow up Referrals: Appointment for Follow Up Appointment for Follow Up Appointment for Follow Up Appointment for Follow Up Cardiology PCP Follow-up New Medications: Omeprazole (Omeprazole) 20 Mg Tab 20 MG PO DAILY GERD #30 Ref 2 TAB Amiodarone (Amiodarone) 200 Mg Tab 200 MG PO Q12HR heart rhythm #28 Ref 0 TAB Clopidogrel (Plavix) 75 Mg Tab 75 MG PO DAILY Blood Clot Prevention #30 Ref 2 TAB Ferrous Sulfate (Ferrous Sulfate) 325 Mg Tab 325 MG PO BID@,17 anemia #14 TAB Metoprolol Tartrate (Metoprolol Tartrate) 25 Mg Tab 12.5 MG PO Q12HR Blood Pressure Management #60 Ref 2 TAB Continued Medications: Alprazolam (Alprazolam) 0.5 Mg Tab 0.5 MG PO Q6H PRN ANXIETY Ref 0 TAB Aspirin (Aspir-81) 81 Mg Tab 81 MG PO DAILY Cholecalciferol (Vitamin D-3) 2 000 Tab 2000 UNIT OR DAILY Coenzyme Q10 (Ubidecarenone) (Co Q 10) 100 Mg Cap 100 MG OR DAILY Docusate Sodium (Colace) 100 Mg Cap 100 MG PO BID PRN Constipation #60 Ref 0 CAP Folic Acid (Folate) 1 Mg Tab 1 MG PO DAILY X6 DAYS Hydroxychloroquine Sulfate (Plaquenil) 200 Mg Tab 200 MG PO BID Lactobacillus Acidophilus (Probiotic) 1 Cap Cap 1 CAP PO TIDAC Nutritional Supplement #90 Ref 0 CAP Lisinopril (Lisinopril) 5 Mg Tab 5 MG PO DAILY Blood Pressure Management #30 Ref 0 TAB Methotrexate (Rheumatrex) 2.5 Mg Tab 20 MG PO WEEKLY Propylene Glycol Opth Drops (Systane Balance Druze Opth Drops) 0.6% Soln 1 DROP EACH EYE PRN PRN DRY EYE Ref 0 BOTTLE Discontinued Medications: Amlodipine (Amlodipine) 10 Mg Tab 10 MG PO DAILY Blood Pressure Management #30 Ref 0 TAB Clopidogrel (Clopidogrel) 75 Mg Tab 75 MG PO DAILY Blood Clot Prevention #30 Ref 0 TAB Isosorbide Mononitrate ER (Isosorbide Mononitrate ER) 30 Mg Iram 30 MG PO DAILY Prevent Chest Pain #30 Ref 0 TAB Nitroglycerin SL (Nitrostat SL) 0.4 Mg Subl 0.4 MG SL DIRECTED 1 tablet under the tongue as needed for chest pain. Repeat every 5 minutes for a total of 3 DOSES or call 911 if NO relief. PRN CHEST PAIN #100 Ref 0 TAB.SL Nathalie Cruz Aug 12, 2016 16:18
[2016-08-12] MEDS ORDERED: MISC-163 (16:22)
[2016-08-12] MEDS ORDERED: WALKER WHEELS/F1 MIS (16:22)
[2016-08-12] MEDS: SENNOSIDES 8.6 MG TAB PO SCH (21:00)
[2016-08-12] MEDS: ALPRAZolam 0.25 MG TAB PO PRN (22:32)
[2016-08-13] VITALS (17 sets, daily range): BP systolic 100–110; BP diastolic 63–69; PULSE 68–92; RESP 16–18; TEMP 98.3–99.1; O2SAT 94–97
[2016-08-13] MEDS: PANTOPRAZOLE SOD 40 MG DELAYED RELEASE TAB PO SCH (04:57)
[2016-08-13] MEDS: POLYETHYLENE GLYCOL 17 GM PKG PO SCH (07:52)
[2016-08-13] MEDS: DOCUSATE SODIUM 100 MG CAP PO SCH ×2 (07:52→09:30)
[2016-08-13] MEDS: MAGNESIUM HYDROXIDE SUSP 30 ML CUP PO SCH (07:52)
[2016-08-13] MEDS: ASPIRIN 81 MG CHEW TAB PO SCH (09:26)
[2016-08-13] MEDS: MULTIVITAMINS/MINERALS THERAPEUTIC TAB PO SCH (09:26)
[2016-08-13] MEDS: ACETAMINOPHEN/HYDROcodone 325 MG/5 MG TAB PO PRN (09:26)
[2016-08-13] MEDS: AMIODARONE 200 MG TAB PO SCH (09:26)
[2016-08-13] MEDS: CLOPIDOGREL 75 MG TAB PO SCH (09:27)
[2016-08-13] MEDS: FOLIC ACID 1 MG TAB PO SCH (09:27)
[2016-08-13] MEDS: METOPROLOL TARTRATE 25 MG TAB PO SCH (09:28)
[2016-08-13] MEDS: HYDROXYCHLOROQUINE SULFATE 200 MG TAB PO SCH (09:28)
[2016-08-13] MEDS: SODIUM CHLORIDE 0.9% FLUSH 10 ML FLUSH IV FLUSH SCH (09:30)
--- NOTE | 2016-08-13 09:48 | PD.CAR.PN ---
CVT Progress Note Subjective/Hospital Course: 80/ male c/o chest pain underwent elective heart cath by Dr Chang / multivessel disease 1& 2nd diagonal branch 90%, 30% LAD, 2nd OM 95% posterolateral branch 80% EF 55% PMH: CAD, HLP, HTN, PAD/ intolerance to statins 08/07/16 No complaints. Denies chest pain 08/08/16 remains chest pain free, scheduled for surgery in am 08/09 . Urgent Off-pump Coronary Artery Bypass Grafting x 4 with left internal mammary artery (BACA) to left anterior descending (LAD), reverse saphenous vein graft to Diagonal 2, sequential reverse saphenous vein graft to the terminal Circumflex artery and to the RPDA 2. Right Leg Endoscopic Vein [place] 2800 crystalloid, 250cc cell saver, EBL 500cc extubated after surgery 08/10 slowly weaning off Wayne gtt additional IV fluid and albumin given this am eval for transfer later today, when off Wayne and BP stable 08/11 rhythm stable, chest tubes removed without difficulty BP stable HGB 8.0/ recheck in am , quiac stool, on PPI , start ferrous sulfate continue pulm toileting 08/12 on room air , ambulating with PT + BM , HGB stable CXR noted has small left pleural effusion 08/13 D/C Home Objective: Vital Signs Date Time Temp Pulse Resp B/P Pulse Ox O2 Delivery O2 Flow Rate FiO2 08/13/16 08:00 80 08/13/16 07:00 78 08/13/16 05:04 98.5 74 16 100/63 94 08/13/16 04:00 74 08/13/16 03:00 68 08/13/16 02:00 70 08/13/16 01:00 78 08/13/16 00:00 92 08/12/16 23:36 98.7 95 16 139/74 94 08/12/16 23:00 102 08/12/16 22:00 118 08/12/16 21:00 90 08/12/16 20:00 98.7 96 16 137/78 95 08/12/16 20:00 104 08/12/16 19:21 18 08/12/16 19:00 93 08/12/16 16:01 102 08/12/16 15:30 98.9 86 18 116/71 93 08/12/16 15:00 102 08/12/16 14:00 78 08/12/16 12:00 74 08/12/16 11:30 98.2 77 18 106/64 96 08/12/16 11:00 74 08/12/16 10:00 80 Result Diagram: 08/12/16 0430 08/11/16 0405 (1) CAD (coronary artery disease) (2) S/P CABG x 3 Plan: ASA, plavix, intolerant to statins on BB gentle diuresis pulm toileting nebs, ezpap , acapella eval for dc home with [facility] tommorow (3) Hyperlipemia Plan: intolerant to all statin (4) Peripheral arterial disease Plan: plavix (5) Hypertension Plan: controlled (6) Carotid artery disease Plan: outpt f/u with Dr Smart (7) Blood loss anemia Plan: HGB 8.0 >8.4, check quaic stool/ ferrous sulfate Marito Chang MD Aug 13, 2016 09:48
[2016-08-13] MEDS: FERROUS SULFATE 325 MG (65 MG ELEMENTAL IRON) TAB PO SCH (12:11)
--- NOTE | 2016-09-12 09:49 | RSPPFT ---
DATE OF PROCEDURE: 08/05/16 COMMENTS: Spirometry shows FEV1 of 3.0 at 121% of predicted, FVC of 3.5 at 110%, FEF 25-75 is 149% of predicted. Post-bronchodilator study was not performed. Flow volume loops appear unremarkable. IMPRESSION: 1. Essentially normal pulmonary function study.
== END 2016-08-13 17:10 | disposition home health service (06) | DRG 234 ==
LOC: HCAT 08:49 → HDIC 08:51 → HCIS 15:11 → HCAT 16:17 → HCIS 16:26 → HCVR 08-08 20:49 → HCIN 08-10 13:50
PROVIDERS: ADMIT Thoracic Surgery (Cardiothoracic Vascular Surgery); ATTEND Thoracic Surgery (Cardiothoracic Vascular Surgery)
PROC: 4A023N7 Measurement of Cardiac Sampling and Pressure, Left Heart, Percutaneous Approach (ICD-10-PCS; 2016-08-05)
PROC: B2111ZZ Fluoroscopy of Multiple Coronary Arteries using Low Osmolar Contrast (ICD-10-PCS; 2016-08-05)
PROC: B31H1ZZ Fluoroscopy of Right Upper Extremity Arteries using Low Osmolar Contrast (ICD-10-PCS; 2016-08-05)
PROC: 02100Z9 Bypass Coronary Artery, One Artery from Left Internal Mammary, Open Approach (ICD-10-PCS; 2016-08-09)
PROC: 06BP4ZZ Excision of Right Saphenous Vein, Percutaneous Endoscopic Approach (ICD-10-PCS; 2016-08-09)
PROC: 021209W Bypass Coronary Artery, Three Arteries from Aorta with Autologous Venous Tissue, Open Approach (ICD-10-PCS; principal; 2016-08-09 07:36)
DX: I25.110 Atherosclerotic heart disease of native coronary artery with unstable angina pectoris (principal); I27.2 Other secondary pulmonary hypertension; J90 Pleural effusion, not elsewhere classified; I08.3 Combined rheumatic disorders of mitral, aortic and tricuspid valves; M32.9 Systemic lupus erythematosus, unspecified; R00.1 Bradycardia, unspecified; J44.9 Chronic obstructive pulmonary disease, unspecified; I73.9 Peripheral vascular disease, unspecified; I12.9 Hypertensive chronic kidney disease with stage 1 through stage 4 chronic kidney disease, or unspecified chronic kidney disease; M19.90 Unspecified osteoarthritis, unspecified site; N18.2 Chronic kidney disease, stage 2 (mild); K21.9 Gastro-esophageal reflux disease without esophagitis; I25.2 Old myocardial infarction; R10.9 Unspecified abdominal pain; E78.5 Hyperlipidemia, unspecified; D50.0 Iron deficiency anemia secondary to blood loss (chronic); F41.9 Anxiety disorder, unspecified; Z88.2 Allergy status to sulfonamides; Z90.49 Acquired absence of other specified parts of digestive tract; Z95.5 Presence of coronary angioplasty implant and graft
CPT/HCPCS: 36430; 71010; 71020; 76937; 80048; 80053; 81001; 82150; 82272; 82948; 83036; 83735; 85014; 85025; 85027; 85576; 85610; 86850; 86900; 86901; 86920; 87641; 93005; 93454; 93880; 93970; 93998; 94002; 94010; 94150; 94640; 94664; 94667; C1768; C1769; C1887; C1893; C9399; J0131; J0690; J1644; J1815; J1885; J1940; J2250; J2270; J2370; J2405; J2440; J2720; J2765; J3010; J3370; J3475; J3480; J7030; J7040; J7050; J7120; P9016; P9045; Q9967